=== PATIENT | female | born 1950 | race Caucasian/White ===

== ENCOUNTER 2020-05-22 11:38 | Outpatient (CLI) | payer MEDICARE, SELFPAY ==
--- NOTE | ~2020-05-22 | MM_ITS ---
EXAMINATION: MM screening allison BI w tanja HISTORY: Screening TECHNIQUE: Craniocaudal and mediolateral oblique 3-D tomosynthesis images were obtained and synthetic 2-D images were generated. CAD analysis was submitted and interpreted. COMPARISON: Comparison to multiple prior studies sequentially, with oldest reviewed study dated 03/12. BREAST PARENCHYMAL COMPOSITION: There are scattered areas of fibroglandular density. FINDINGS: There is no evidence of suspicious mass, calcification, or architectural distortion to sugg est malignancy in either breast. There has been no suspicious interval change. IMPRESSION: 1. No mammographic evidence of malignancy. 2. Recommend routine screening mammography in one year. BI-RADS Category 1: Negative Reviewed, dictated and finalized at location A.
== END 2020-05-22 11:39 | disposition home or self-care (01) ==
PROVIDERS: PCP Family Medicine; Visit Provider Family Medicine
DX: Z12.31 Encounter for screening mammogram for malignant neoplasm of breast (principal)
CPT/HCPCS: 77063; 77067

== ENCOUNTER → 2020-08-14 09:04 | Outpatient (CLI) | payer MEDICARE, SELFPAY ==
--- NOTE | ~2020-08-14 | XR_ITS ---
XR shoulder LT min 2V 08/14/2020 09:56 INDICATION: Left shoulder pain PROCEDURE: 4 views left shoulder COMPARISON: 08/14/2020 FINDINGS: Fracture, dislocation or subluxation is not identified. There is anatomic alignment. The s oft tissues appear within normal limits. No foreign bodies are identified. IMPRESSION: 1: NO ACUTE BONE OR JOINT ABNORMALITY IDENTIFIED. 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
--- NOTE | ~2020-08-14 | XR_ITS ---
XR humerus LT 08/14/2020 09:56 INDICATION: Left arm pain PROCEDURE: 2 views left humerus COMPARISON: No prior studies for comparison. FINDINGS: Fracture, dislocation or subluxation is not identified. The soft tissues appear within norm al limits. No foreign bodies are identified. IMPRESSION: 1: NO ACUTE BONE OR JOINT ABNORMALITY IDENTIFIED. 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
--- NOTE | ~2020-08-14 | XR_ITS ---
XR cervical spine 4-5V 08/14/2020 09:56 Indication: Left arm pain Procedure: 5 views cervical spine Comparison: No prior studies for comparison. Findings: There is disc narrowing and endplate degenerative change at C5-6 and C6-7. No prevertebral soft tissue swelling. There is mild multilevel uncinate hypertrophy. Lung apices are normal. Odontoid process within normal limits. Impression: 1: Mild cervical spondylosis. Reviewed, dictated and finalized at location B. 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
== END ==
PROVIDERS: PCP Physician Assistant; Visit Provider Physician Assistant
DX: M79.602 Pain in left arm (principal); M47.892 Other spondylosis, cervical region
CPT/HCPCS: 72050; 73030; 73060

== ENCOUNTER 2021-05-26 10:28 | Outpatient (CLI) | payer MEDICARE, SELFPAY ==
--- NOTE | ~2021-05-26 | MM_ITS ---
EXAMINATION: MM screening allison BI w atnja HISTORY: Screening TECHNIQUE: Craniocaudal and mediolateral oblique 3-D tomosynthesis images were obtained and synthetic 2-D images were generated. CAD analysis was submitted and interpreted. COMPARISON: Comparison to multiple prior studies sequentially, with oldest reviewed study dated 03/12. BREAST PARENCHYMAL COMPOSITION: There are scattered areas of fibroglandular density. FINDINGS: There is no evidence of suspicious mass, calcification, or architectural distortion to sugg est malignancy in either breast. There has been no suspicious interval change. IMPRESSION: 1. No mammographic evidence of malignancy. 2. Recommend routine screening mammography in one year. BI-RADS Category 1: Negative Reviewed, dictated and finalized at location A.
== END 2021-05-26 10:29 | disposition home or self-care (01) ==
LOC: ANHIMG 10:30
PROVIDERS: PCP Physician Assistant; Visit Provider Obstetrics & Gynecology
DX: Z12.31 Encounter for screening mammogram for malignant neoplasm of breast (principal)
CPT/HCPCS: 77063; 77067

== ENCOUNTER 2022-09-25 09:42 | Outpatient (CLI) | payer MEDICARE, SELFPAY ==
--- NOTE | ~2022-09-25 | DEXA_ITS ---
Bone Density Report Name: HAIDER MARTINEZ Age: 72 Sex: Female Ethnicity: White Date of : 1950 Indication: postmenopausal; screening for osteoporosis; hysterectomy; secondary osteoporosis; Referring Provider: MOUNA HER Study: Bone densitometry was performed. Exam Date: September 25, 2022 Accession number: [id number] Bone Density: Region BMD T-score Z-score Classification AP Spine(L1-L4) 0.948 -0.9 1.2 Normal Femoral Neck (Left) 0.739 -1.0 0.8 Normal Total Hip (Left) 0.814 -1.0 0.5 Normal Femoral Neck (Right) 0.739 -1.0 0.8 Normal Total Hip (Right) 0.856 -0.7 0.8 Normal Total Hip Mean 0.835 -0.9 0.7 Normal World Health Organization criteria for BMD impression classify patients as: Normal (T-score at or above -1.0), Osteopenia (T-score between -1.0 and -2.5), or Osteoporosis (T-score at or below -2.5). 10-year Fracture Risk: FRAX not reported because: All T-scores for Spine Total, Hip Total, Femoral Neck at or above -1.0 Clinical Information Provided by Patient: Has secondary osteoporosis Has used the following medications: HRT (i.e. estrogen/hormone therapy), Vitamin D Has the following medical conditions: Hysterectomy Patient maximum height was 64.5 Menopause Age: 34 Onset of menses at age 15 Number of children 3 Impression: The patient has normal bone mass. Discussion: BONE DENSITY IS ABOVE THE MINIMUM DESIRABLE LEVEL AT ALL SKELETAL SITES TESTED. This patient?s bone mineral density is above the minimum desirable level (T-score -1.0 or better) at all sites measured. The patient should follow a healthful lifestyle (good nutrition with adequate calcium and vitamin D, and appropriate weight-bearing exercise). Follow-Up: Consider repeating this study in 5 years or sooner if there is some new clinical indication. Reported by: DORIAN on 09/25/2022 10:11:00 AM. Reviewed, dictated and finalized at location Sarai MEZA
== END 2022-09-25 09:43 | disposition home or self-care (01) ==
PROVIDERS: PCP Physician Assistant; Visit Provider Obstetrics & Gynecology
DX: Z78.0 Asymptomatic menopausal state (principal)
CPT/HCPCS: 77080

== ENCOUNTER 2022-11-05 16:29 | Outpatient (CLI) | payer MEDICARE, SELFPAY ==
--- NOTE | ~2022-11-05 | MM_ITS ---
EXAMINATION: MM screening allison BI w tanja HISTORY: Screening mammogram TECHNIQUE: Craniocaudal and mediolateral oblique 3-D tomosynthesis images were obtained and synthetic 2-D images were generated. CAD analysis was submitted and interpreted. COMPARISON: 05/26/2021, 06/01/2020, 05/01/2018 bilateral screening mammogram examinations BREAST PARENCHYMAL COMPOSITION: There are scattered areas of fibroglandular density. FINDINGS: There is no evidence of suspicious mass, calcification, or architectural distortion to sugg est malignancy in either breast. There has been no suspicious interval change. IMPRESSION: 1. No mammographic evidence of malignancy. 2. Recommend routine screening mammography in one year. 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
== END 2022-11-05 16:30 | disposition home or self-care (01) ==
PROVIDERS: PCP Physician Assistant; Visit Provider Obstetrics & Gynecology
DX: Z12.31 Encounter for screening mammogram for malignant neoplasm of breast (principal)
CPT/HCPCS: 77063; 77067

== ENCOUNTER 2023-11-15 08:46 | Outpatient (CLI) | payer MEDICARE, SELFPAY ==
--- NOTE | ~2023-11-15 | MM_ITS ---
EXAMINATION: MM screening allison BI w tanja HISTORY: Screening mammogram TECHNIQUE: Craniocaudal and mediolateral oblique 3-D tomosynthesis images were obtained and synthetic 2-D images were generated. CAD analysis was submitted and interpreted. COMPARISON: November 05, 2022, May 26, 2021 bilateral screening mammogram examinations BREAST PARENCHYMAL COMPOSITION: There are scattered areas of fibroglandular density. FINDINGS: There is no evidence of suspicious mass, calcification, or architectural distortion to sugg est malignancy in either breast. There has been no suspicious interval change. IMPRESSION: 1. No mammographic evidence of malignancy. 2. Recommend routine screening mammography in one year. BI-RADS Category 1: Negative Reviewed, dictated and finalized at location A. [facility]
== END 2023-11-15 08:47 | disposition home or self-care (01) ==
LOC: ANHIMG 08:49
PROVIDERS: PCP Physician Assistant; Visit Provider Nurse Practitioner Obstetrics & Gynecology
DX: Z12.31 Encounter for screening mammogram for malignant neoplasm of breast (principal)
CPT/HCPCS: 77063; 77067

== ENCOUNTER 2024-11-17 13:58 | Outpatient (CLI) | payer MEDICARE, SELFPAY ==
--- NOTE | ~2024-11-17 | MM_ITS ---
EXAMINATION: MM screening allison BI w tanja HISTORY: Screening TECHNIQUE: Craniocaudal and mediolateral oblique 3-D tomosynthesis images were obtained and synthetic 2-D images were generated. CAD analysis was submitted and interpreted. COMPARISON: 11/15/2023 and dating back to 05/22/2020 BREAST PARENCHYMAL COMPOSITION: There are scattered areas of fibroglandular density. FINDINGS: Punctate and bulky calcifications are detected bilaterally, stable and benign in appearance . Punctate calcifications detected bilaterally, vascular in origin and benign in appearance. Otherwise stable parenchymal pattern without suspicious microcalcifications, architectural distortion , discrete masses or significant asymmetry. IMPRESSION: 1. No mammographic/tomographic evidence of malignancy. 2. Recommend routine screening mammography in one year. BI-RADS Category 2: Benign finding(s). Reviewed, dictated and finalized at location A. 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
--- OUTSIDE RECORDS SUMMARY | 2024-11-17 14:14 | XMS_ITS ---
Author Organization [facility] Address [address] [place] [address] Care Team Providers Care Hoister Name Role Phone Colten Loja Primary Care Provider Unavaila Keli Escalera Unavailable [phone] ZZ-Migration, Provider Unavailable Unavailab le [facility] Conversion Encounter Medications Medication SIG (Take, Route, Frequency, Duration) Notes Start Date End Date Status SIT (TRADITIONAL) VARIABLE PER SCHEDULE SC PER SCHEDULE *Please review for potential replacement for e-prescription and drug interaction check* Active PROAIR HFA CFC FREE 90 MCG/INH 2 PUFF(S) INHALED 4 TIMES A DAY for 30 DAY(S) *Please review for potential replacement for e-prescription and drug interaction check* Active metFORMIN HCl 500 MG 1 tab(s) orally 2 times a day Active Claritin-D 12 Hour 5-120 MG 1 tab(s) orally every 12 hours Active Tylenol 325 MG 2 tab(s) orally ever y 4 hours Active NASONEX 50 MCG/INH 2 SPRAY(S) INTRANASALLY ONCE A DAY *Please review for potential replacement for e-prescription and drug interaction check* Active Cetirizine HCl 10 MG 1 tab(s) orally once a day Active Auvi-Q 0.3 MG/0.3ML 0.3 mg intramuscularly once Active Lipitor 10 MG 1 tab(s) orally once a day (at bedtime) Active PROAIR HFA CFC FREE 90 MCG/INH 2 PUFF(S) INHALED 4 TIMES A DAY for 30 DAY(S) *Please review for potential replacement for e-prescription and drug interaction check* Active NASAL WASHES N/A DIRECTED INTRANASALLY NEEDED for 30 *Please review for potential replacement for e-prescription and drug interaction check* Active SIT (TRADITIONAL) VARIABLE PER SCHEDULE SC PER SCHEDULE for TO BE DETERMINED *Please review for potential replacement for e-prescription and drug interaction check* Active NASAL WASHES N/A DIRECTED INTRANASALLY NEEDED *Please review for potential replacement for e-prescription and drug interaction check* Active EpiPen 2-Yahir 0.3 MG/0.3ML as directed intramuscularly once for 30 day(s) Active Cetirizine HCl 10 MG 1 tab(s) orally once a day Active Encounters Encounter Location Date Provider Diagnosis RUPA Fan [address] [place], [place] [address] [address] 02/26/2024 Provider Jenny Allergic rhinitis due to pollen J30.1 and Cough R05 Assessments Encounter Date Diagnosis (ICD Code) Assessment Notes Treatment Notes Treatment Clinical Notes Section Notes 02/26/2024 Allergic rhinitis due to pollen (ICD-10 - J30.1) 02/26/2024 Cough (ICD-10 - R05) Plan Of Treatment Medication Medication Name Sig Start Date Stop Date Notes SIT (TRADITIONAL) VARIABLE PER SCHEDULE SC PER SCHEDULE *Please review for potential replacement for e-prescription and drug interaction check* PROAIR HFA CFC FREE 90 MCG/INH 2 PUFF(S) INHALED 4 TIMES A DAY for 30 DAY(S) *Please review for potential replacement for e-prescription and drug interaction check* NASAL WASHES N/A DIRECTED INTRANAS ALLY NEEDED for 30 *Please review for potential replacement for e-prescription and drug interaction check* SIT (TRADITIONAL) VARIABLE PER SCHEDULE SC PER SCHEDULE for TO BE DETERMINED *Please review for potential replacement for e-prescription and drug interaction check* EpiPen 2-Yahir 0.3 MG/0.3ML as directed intramuscularly once for 30 day(s) Cetirizine HCl 10 MG 1 tab(s) orally onc e a day Progress Notes * Mily PEREZ MDOB:[birth year] (74 yo F)Acc No.[id number]:02/26/2024 Patient: Mily HOOPER Provider: Parveen Maciel :1950 A ge:73 Y S ex:Female Date:02/26/2024 Address:[facility] [address], [place], [id number] Pcp:Colten Loja Subjective: * Chief Complaints: * 1 . Multum To Medispan Conversion Encounter. * Medical History: * Medications: T aking NASAL WASHES N/A 1 QUART OF STERILIZED TAP WATER OR DISTILLED WATER, 1 TSP NACL, 1 PINCH OF BAKING SODA DIRECTED INTRANASALLY NEEDED , Notes to Pharmacist: *Please review for potential replacement for e-prescription and drug interaction check*, Taking PROAIR HFA CFC FREE 90 MCG/INH AEROSOL 2 PUFF(S) INHALED 4 TIMES A DAY , Notes to Pharmacist: *Please review for potential replacement for e-prescription and drug interaction check*, Taking NASONEX 50 MCG/INH SPRAY 2 SPRAY(S) INTRANASALLY ONCE A DAY , Notes to Pharmacist: *Please review for potential replacement for e-prescription and drug interaction check*, Taking Cetirizine HCl 10 MG Tablet 1 tab(s) orally once a day , Taking Auvi-Q 0.3 MG/0.3ML Solution Auto-injector 0.3 mg intramuscularly once , Taking Lipitor 10 MG Tablet 1 tab(s) orally once a day (at bedtime) , Taking metFORMIN HCl 500 MG Tablet 1 tab(s) orally 2 times a day , Taking Claritin-D 12 Hour 5-120 MG Tablet Extended Release 12 Hour 1 tab(s) orally every 12 hours , Taking Tylenol 325 MG Tablet 2 tab(s) orally every 4 hours Objective: * Vitals: Assessment: * Assessment: 1. A llergic rhinitis due to pollen - J30.1 (Primary) 2 . C ough - R05 Plan: * Treatment: 2. C ough Continue PROAIR HFA AEROSOL, CFC FREE 90 MCG/INH, 2 PUFF(S), INHALED, 4 TIMES A DAY, 30 DAY(S), 240, Notes to Pharmacist: *Please review for potential replacement for e-prescription and drug interaction check*. 3. O thers Refill EpiPen 2-Yahir Solution Auto-injector, 0.3 MG/0.3ML, as directed, intramuscularly, once, 30 day(s), 1, Refills 0. * Billing Information: * Visit Code: * Procedure Codes: * Electronic signature of Wanda HallZ-Migration on 11/17/2024 at 02:14 PM GRILL ATTENDANT Sign off status: Pending * Provider: Parveen mulligan Migration Date: 0 02/26/2024 Generated for Cheri cerrato/Leanna/[place] on: 0 11/17/2024 02:14 PM GRILL ATTENDANT
--- OUTSIDE RECORDS SUMMARY | 2024-11-17 14:14 | XMS_ITS | Data Portability ---
Author Organization [facility], Main Office Address [address] [place] [address] Assessment No assessment recorded. Plan of Treatment Reminders Order Date Submit Date Provider Last Modified By Organization Details Last Modified Time Details Appointments None recorded. Lab HbA1c (hemoglobin A1c), blood 2022 023 [facility] Ailyn Silva, [address], [place], [address], 3 10:05:06 hepatic function panel, serum 2022 023 [email or web address] [facility] Ailyn Silva, [address], [place], [address], 3 09:23:56 BMP, serum or plasma 2022 023 [facility], 2022 Ailyn Silva, [address], [place], [address], 3 10:05:05 CBC w/ auto diff 2022 023 [facility], 2022 Ailyn Silva, [address], [place], [address], 3 10:05:05 lipid panel, serum 2022 023 [facility], 2022 Ailyn Silva, [address], [place], [address], 3 10:05:05 Referral None recorded. Procedures None recorded. Surgeries None recorded. Imaging None recorded. Medication Orders atorvastati n 10 mg tablet 2022 023 [facility] [address] [place], [address], 12:01:41 lisinopril 10 mg tablet 2022 023 [facility] [address] [place], [address], 12:01:44 metformin 500 mg tablet 2022 023 [facility] [address] [place], [address], 12:01:42 Patient TargetsNo targets recorded. Patient Instructions Encounter Date Encounter Id Patient Instructions Last Modified By Organization Details Last Modified Time 08/02/2023 [id number] dementia rating scale-2* [email or web address] Not available 08/02/2023 12:03:01 multi-dimensiona l health assessment questionnaire* [email or web address] Not available 08/02/2023 12:03:05 care plan* [email or web address] Not available 07/15 12:02:56 advance directiv es: care instructions Not available 08/02/2023 11:50:53 advance care planning: care instructions Not available 08/02/2023 11:50:52 [place] Advance Directives Not available 08/02/2023 11:50:53 Personalized Hea lth Plan and Screening Recommendations Advance Directives - Do you have one? Yes Advance Directives - Do we have your advance directive on file in your health record? No, please bring in a copy at your earliest convenience Primary Prevention/Interven tion (prevents or decreases the chance of common diseases from occurring) Smoking Risk: Non Smoker Alcohol Misuse Screening: Negative Weight: Appropriate Physical activity: Appropriate physical activity Nutrition: Good Fall Risk (screened today): Low Vaccines Pneumococcal: Ordered Recommended today Influenza: Your next one in the fall of this year Chronic Disease Risks Stroke: Low Risk Intermediate Risk I have no recommendations Act joan diagnosis, Continue current treatment plan Heart Attack: Low risk Intermediate Risk I have no recommendations Act joan diagnosis, Continue current treatment plan Clogging of the Arteries: Low risk Intermediate Risk I have no recommendations Act joan diagnosis, Continue current treatment plan Diabetes: High Risk Active diagnosis, Continue current treatment plan Secondary Prevention/Interven tion (detects treatable diseases before they may cause symptoms, disability, or ) Breast Cancer Screening with mammogram: Cervical/Uterine/Ov niya Cancer Screening: Your next PAP/pelvic in: Referral to rn cvicu Osteoporosis Screening: Date Screening Last Performed: Colon Cancer Screening: Colonoscopy Date Screening Last Performed: Eye Disease Screening: Ordered Dementia Risk: Low Depression Screening: Negative Active diagnosis, Continue current treatment plan Not available 08/06/2023 19:11:46 Reason for Referral None Reported. Results Created Date Observation Date Name Description Value Unit Range Abnormal Flag Note LastModifiedBy Organization Detail LastModifiedTime 09/10/20 21 09/11/2021 HEMOG LOBIN A1C hemoglobin A1C 6.1 % 4.8-5. 6 above high normal Predi abete s: 5.7 - 6.4 Diabe hardik: >6.4 Glyce herber contr ol for adult s with diabe hardik: <7.0 Not Available [facility] ([facility]) [address] [place], [address], 09/11/2021 08:23:18 09/10/20 21 09/11/2021 HEPAT IC FUNCT ION PANEL (7) protein, total 6.9 g/dL 6.0-8. 5 Not Available [facility] ([facility]) [address] [place], [address], 09/11/2021 08:23:18 09/10/20 21 09/11/2021 HEPAT IC FUNCT ION PANEL (7) albumin 4.4 g/dL 3.8-4. 8 Not Available [facility] ([facility]) [address] [place], [address], 09/11/2021 08:23:18 09/10/20 21 09/11/2021 HEPAT IC FUNCT ION PANEL (7) bilirubin, total 0.4 mg/dL 0.0-1. 2 Not Available [facility] ([facility]) [address] [facility] [place], [address], 09/11/2021 08:23:18 09/10/20 21 09/11/2021 HEPAT IC FUNCT ION PANEL (7) bilirubin, direct 0.12 mg/dL 0.00-0 .40 Not Available [facility] ([facility]) [address] [facility] [place], [address], 09/11/2021 08:23:18 09/10/20 21 09/11/2021 HEPAT IC FUNCT ION PANEL (7) alkaline phosphatase 100 IU/L 44-121 Ple ase note refer ence inter susi jackson e Not Available [facility] ([facility]) [address] [facility] [place], [address], 09/11/2021 08:23:18 09/10/20 21 09/11/2021 HEPAT IC FUNCT ION PANEL (7) AST (SGOT) 15 IU/L 0-40 Not Available [facility] ([facility]) [address] [facility] [place], [address], 09/11/2021 08:23:18 09/10/20 21 09/11/2021 HEPAT IC FUNCT ION PANEL (7) ALT (SGPT) 16 IU/L 0-32 Not Available [facility] ([facility]) [address] [facility] [place], [address], 09/11/2021 08:23:18 09/10/20 21 09/11/2021 LIPID PANEL W/ CHOL/ HDL RATIO cholesterol, total 141 mg/dL 100-19 9 Not Available [facility] ([facility]) [address] [facility] [place], [address], 09/11/2021 08:23:17 09/10/20 21 09/11/2021 LIPID PANEL W/ CHOL/ HDL RATIO triglyceride s 130 mg/dL 0-149 Not Available [facility] ([facility]) [address] [place], [address], 09/11/2021 08:23:17 09/10/20 21 09/11/2021 LIPID PANEL W/ CHOL/ HDL RATIO HDL cholesterol 41 mg/dL >39 Not Available [facility]) [address] [facility] [place], [address], 09/11/2021 08:23:17 09/10/20 21 09/11/2021 LIPID PANEL W/ CHOL/ HDL RATIO VLDL cholesterol swapna 23 mg/dL 5-40 Not Available [facility] ([facility]) [address] [facility], [place], [address], 09/11/2021 08:23:17 09/10/20 21 09/11/2021 LIPID PANEL W/ CHOL/ HDL RATIO LDL chol calc ([facility]) 77 mg/dL 0-99 Not Available [facility]) [address] [facility], [place], [address], 09/11/2021 08:23:17 09/10/20 21 09/11/2021 LIPID PANEL W/ CHOL/ HDL RATIO comment: crnp Not Available [facility] ([facility]) [address] [facility], [place], [address], 09/11/2021 08:23:17 09/10/20 21 09/11/2021 LIPID PANEL W/ CHOL/ HDL RATIO T. chol/HDL ratio 3.4 ratio 0.0-4. 4 T. Chol/ HDL Ratio Men Women 1/2 Avg.R isk 3.4 3.3 Avg.R isk 5.0 4.4 2X Avg.R isk 9.6 7.1 3X Avg.R isk 23.4 11.0 Not Available [facility] ([facility]) [address] [facility], [place], [address], 09/11/2021 08:23:17 09/10/20 21 09/11/2021 BASIC METAB OLIC PANEL (8) glucose 101 mg/dL 65-99 above high normal Not Available [facility] ([facility]) [address] [facility], [place], [address], 09/11/2021 08:23:17 09/10/20 21 09/11/2021 BASIC METAB OLIC PANEL (8) BUN 11 mg/dL 8-27 Not Available [facility] ([facility]) [address] [facility], [place], [address], 09/11/2021 08:23:17 09/10/20 21 09/11/2021 BASIC METAB OLIC PANEL (8) creatinine 0.79 mg/dL 0.57-1 .00 Not Available [facility] ([facility]) [address] [facility], [place], [address], 09/11/2021 08:23:17 09/10/20 21 09/11/2021 BASIC METAB OLIC PANEL (8) eGFR if nonafricn AM 77 mL/mi n/1.7 3 >59 Not Available [facility] ([facility]) [address] [facility], [place], [address], 09/11/2021 08:23:17 09/10/20 21 09/11/2021 BASIC METAB OLIC PANEL (8) eGFR if africn AM 88 mL/mi n/1.7 3 >59 In accor dance with recom menda tions from the NKF-A SN Task force , [facility] is in the proce ss of updat ing its eGFR calcu latio n to the 2020 CKD-E PI creat inine equat ion that estim ates kidne y funct ion witho ut a race varia ble. Not Available [facility] ([facility]) [address] [facility], [place], [address], 09/11/2021 08:23:17 09/10/20 21 09/11/2021 BASIC METAB OLIC PANEL (8) BUN/creatini ne ratio 14 12-28 Not Available [facility] ([facility]) [address] [facility], [place], [address], 09/11/2021 08:23:17 09/10/20 21 09/11/2021 BASIC METAB OLIC PANEL (8) sodium 138 mmol/ L 134-14 4 Not Available [facility] ([facility]) [address] [place], [address], 09/11/2021 08:23:17 09/10/20 21 09/11/2021 BASIC METAB OLIC PANEL (8) potassium 5.0 mmol/ L 3.5-5. 2 Not Available [facility] ([facility]) [address] [place], [address], 09/11/2021 08:23:17 09/10/20 21 09/11/2021 BASIC METAB OLIC PANEL (8) chloride 102 mmol/ L 96-106 Not Available [facility] ([facility]) [address] [place], [address], 09/11/2021 08:23:17 09/10/20 21 09/11/2021 BASIC METAB OLIC PANEL (8) carbon dioxide, total 23 mmol/ L 20-29 Not Available [facility] ([facility]) [address] [place], [address], 09/11/2021 08:23:17 09/10/20 21 09/11/2021 BASIC METAB OLIC PANEL (8) calcium 9.4 mg/dL 8.7-10 .3 Not Available [facility] ([facility]) [address] [place], [address], 09/11/2021 08:23:17 09/10/20 21 09/11/2021 URINA LYSIS , COMPL ETE specific gravity 1.018 1.005- 1.030 Not Available [facility] ([facility]) [address] [place], [address], 09/11/2021 08:23:16 09/10/20 21 09/11/2021 URINA LYSIS , COMPL ETE pH 7.5 5.0-7. 5 Not Available [facility] ([facility]) [address] [facility], [place], [address], 09/11/2021 08:23:16 09/10/20 21 09/11/2021 URINA LYSIS , COMPL ETE urine-color yellow yellow Not Available [facility] ([facility]) [address] [facility], [place], [address], 09/11/2021 08:23:16 09/10/20 21 09/11/2021 URINA LYSIS , COMPL ETE appearance clear clear Not Available [facility] ([facility]) [address] [facility], [place], [address], 09/11/2021 08:23:16 09/10/2009/11/2021 URINA LYSIS , COMPL ETE WBC esterase negati ve negati ve Not Available [facility] ([facility]) [address] [facility], [place], [address], 09/11/2021 08:23:16 09/10/20 21 09/11/2021 URINA LYSIS , COMPL ETE protein negati ve negati ve/tra ce Not Available [facility] ([facility]) [address] [facility], [place], [address], 09/11/2021 08:23:16 09/10/2009/11/2021 URINA LYSIS , COMPL ETE glucose negati ve negati ve Not Available [facility] ([facility]) [address] [facility], [place], [address], 09/11/2021 08:23:16 09/10/2009/11/2021 URINA LYSIS , COMPL ETE ketones negati ve negati ve Not Available [facility] ([facility]) [address] [facility], [place], [address], 09/11/2021 08:23:16 09/10/20 21 09/11/2021 URINA LYSIS , COMPL ETE occult blood negati ve negati ve Not Available [facility] ([facility]) [address] [facility], [place], [address], 09/11/2021 08:23:16 09/10/20 21 09/11/2021 URINA LYSIS , COMPL ETE bilirubin negati ve negati ve Not Available [facility] ([facility]) [address] [facility], [place], [address], 09/11/2021 08:23:16 09/10/20 21 09/11/2021 URINA LYSIS , COMPL ETE urobilinogen ,semi-qn 0.2 mg/dL 0.2-1. 0 Not Available [facility] ([facility]) [address] [facility], [place], [address], 09/11/2021 08:23:16 09/10/20 21 09/11/2021 URINA LYSIS , COMPL ETE nitrite, urine negati ve negati ve Not Available [facility] ([facility]) [address] [facility], [place], [address], 09/11/2021 08:23:16 09/10/20 21 09/11/2021 URINA LYSIS , COMPL ETE microscopic examination commen t Micro scopi c follo ws if indic ated. Not Available [facility] ([facility]) [address] [facility], [place], [address], 09/11/2021 08:23:16 09/10/20 21 09/11/2021 URINA LYSIS , COMPL ETE microscopic examination see below: Micro scopi c was indic ated and was perfo rmed. Not Available [facility] ([facility]) [address] [facility], [place], [address], 09/11/2021 08:23:16 09/10/20 21 09/11/2021 URINA LYSIS , COMPL ETE WBC 0-5 /hpf 0 - 5 Not Available [facility] ([facility]) [address] [facility], [place], [address], 09/11/2021 08:23:16 09/10/20 21 09/11/2021 URINA LYSIS , COMPL ETE RBC 0-2 /hpf 0 - 2 Not Available [facility] ([facility]) [address] [facility], [place], [address], 09/11/2021 08:23:16 09/10/20 21 09/11/2021 URINA LYSIS , COMPL ETE epithelial cells (non renal) none seen /hpf 0 - 10 Not Available [facility] ([facility]) [address] [facility], [place], [address], 09/11/2021 08:23:16 09/10/20 21 09/11/2021 URINA LYSIS , COMPL ETE epithelial cells (renal) crnp Not Available [facility] ([facility]) [address] [facility], [place], [address], 09/11/2021 08:23:16 09/10/20 21 09/11/2021 URINA LYSIS , COMPL ETE casts none seen /lpf none seen Not Available [facility] ([facility]) [address] [facility], [place], [address], 09/11/2021 08:23:16 09/10/20 21 09/11/2021 URINA LYSIS , COMPL ETE cast type crnp Not Available [facility] ([facility]) [address] [facility], [place], [address], 09/11/2021 08:23:16 09/10/20 21 09/11/2021 URINA LYSIS , COMPL ETE crystals crnp Not Available [facility] ([facility]) [address] [facility], [place], [address], 09/11/2021 08:23:16 09/10/20 21 09/11/2021 URINA LYSIS , COMPL ETE crystal type crnp Not Available [facility] ([facility]) [address] [facility], [place], [address], 09/11/2021 08:23:16 09/10/20 21 09/11/2021 URINA LYSIS , COMPL ETE mucus threads crnp Not Available [facility] ([facility]) [address] [facility], [place], [address], 09/11/2021 08:23:16 09/10/20 21 09/11/2021 URINA LYSIS , COMPL ETE bacteria none seen none seen/f ew Not Available [facility] ([facility]) [address] [facility], [place], [address], 09/11/2021 08:23:16 09/10/20 21 09/11/2021 URINA LYSIS , COMPL ETE yeast crnp Not Available [facility] ([facility]) [address] [facility], [place], [address], 09/11/2021 08:23:16 09/10/20 21 09/11/2021 URINA LYSIS , COMPL ETE trichomonas crnp Not Available [facility] ([facility]) [address] [facility], [place], [address], 09/11/2021 08:23:16 09/10/20 21 09/11/2021 URINA LYSIS , COMPL ETE comment crnp Not Available [facility] ([facility]) [address] [facility], [place], [address], 09/11/2021 08:23:16 09/10/20 21 09/11/2021 CBC WITH DIFFE RENTI AL/PL ATELE T WBC 3.7 x10e3 /uL 3.4-10 .8 Not Available [facility] ([facility]) [address] [facility], [place], [address], 09/11/2021 08:23:15 09/10/20 21 09/11/2021 CBC WITH DIFFE RENTI AL/PL ATELE T RBC 4.54 x10e6 /uL 3.77-5 .28 Not Available [facility] ([facility]) [address] [facility], [place], [address], 09/11/2021 08:23:15 09/10/20 21 09/11/2021 CBC WITH DIFFE RENTI AL/PL ATELE T hemoglobin 13.6 g/dL 11.1-1 5.9 Not Available [facility] ([facility]) [address] [facility], [place], [address], 09/11/2021 08:23:15 09/10/20 21 09/11/2021 CBC WITH DIFFE RENTI AL/PL ATELE T hematocrit 41.1 % 34.0-4 6.6 Not Available [facility] ([facility]) [address] [facility], [place], [address], 09/11/2021 08:23:15 09/10/20 21 09/11/2021 CBC WITH DIFFE RENTI AL/PL ATELE T MCV 91 fL 79-97 Not Available [facility] ([facility]) [address] [facility], [place], [address], 09/11/2021 08:23:15 09/10/20 21 09/11/2021 CBC WITH DIFFE RENTI AL/PL ATELE T MCH 30.0 pg 26.6-3 3.0 Not Available [facility] ([facility]) [address] [facility], [place], [address], 09/11/2021 08:23:15 09/10/20 21 09/11/2021 CBC WITH DIFFE RENTI AL/PL ATELE T MCHC 33.1 g/dL 31.5-3 5.7 Not Available [facility] ([facility]) [address] [place], [address], 09/11/2021 08:23:15 09/10/20 21 09/11/2021 CBC WITH DIFFE RENTI AL/PL ATELE T RDW 12.7 % 11.7-1 5.4 Not Available [facility] ([facility]) [address] [facility], [place], [address], 09/11/2021 08:23:15 09/10/20 21 09/11/2021 CBC WITH DIFFE RENTI AL/PL ATELE T platelets 235 x10e3 /uL 150-45 0 Not Available [facility] ([facility]) [address] [facility], [place], [address], 09/11/2021 08:23:15 09/10/20 21 09/11/2021 CBC WITH DIFFE RENTI AL/PL ATELE T neutrophils 40 % not estab. Not Available [facility] ([facility]) [address] [facility], [place], [address], 09/11/2021 08:23:15 09/10/20 21 09/11/2021 CBC WITH DIFFE RENTI AL/PL ATELE T lymphs 42 % not estab. Not Available [facility] ([facility]) [address] [facility], [place], [address], 09/11/2021 08:23:15 09/10/20 21 09/11/2021 CBC WITH DIFFE RENTI AL/PL ATELE T monocytes 13 % not estab. Not Available [facility] ([facility]) [address] [facility], [place], [address], 09/11/2021 08:23:15 09/10/20 21 09/11/2021 CBC WITH DIFFE RENTI AL/PL ATELE T eos 4 % not estab. Not Available [facility] ([facility]) [address] [facility], [place], [address], 09/11/2021 08:23:15 09/10/20 21 09/11/2021 CBC WITH DIFFE RENTI AL/PL ATELE T basos 1 % not estab. Not Available [facility] ([facility]) [address] [facility], [place], [address], 09/11/2021 08:23:15 09/10/20 21 09/11/2021 CBC WITH DIFFE RENTI AL/PL ATELE T immature cells crnp Not Available [facility] ([facility]) [address] [facility], [place], [address], 09/11/2021 08:23:15 09/10/20 21 09/11/2021 CBC WITH DIFFE RENTI AL/PL ATELE T neutrophils (absolute) 1.5 x10e3 /uL 1.4-7. 0 Not Available [facility] ([facility]) [address] [place], [address], 09/11/2021 08:23:15 09/10/20 21 09/11/2021 CBC WITH DIFFE RENTI AL/PL ATELE T lymphs (absolute) 1.5 x10e3 /uL 0.7-3. 1 Not Available [facility] ([facility]) [address] [place], [address], 09/11/2021 08:23:15 09/10/20 21 09/11/2021 CBC WITH DIFFE RENTI AL/PL ATELE T monocytes(ab solute) 0.5 x10e3 /uL 0.1-0. 9 Not Available [facility] ([facility]) [address] [place], [address], 09/11/2021 08:23:15 09/10/20 21 09/11/2021 CBC WITH DIFFE RENTI AL/PL ATELE T eos (absolute) 0.1 x10e3 /uL 0.0-0. 4 Not Available [facility] ([facility]) [address] [place], [address], 09/11/2021 08:23:15 09/10/20 21 09/11/2021 CBC WITH DIFFE RENTI AL/PL ATELE T baso (absolute) 0.1 x10e3 /uL 0.0-0. 2 Not Available [facility] ([facility]) [address] [facility], [place], [address], 09/11/2021 08:23:15 09/10/20 21 09/11/2021 CBC WITH DIFFE RENTI AL/PL ATELE T immature granulocytes 0 % not estab. Not Available [facility] ([facility]) [address] [facility], [place], [address], 09/11/2021 08:23:15 09/10/20 21 09/11/2021 CBC WITH DIFFE RENTI AL/PL ATELE T immature grans (abs) 0.0 x10e3 /uL 0.0-0. 1 Not Available [facility] ([facility]) [address] [facility], [place], [address], 09/11/2021 08:23:15 09/10/20 21 09/11/2021 CBC WITH DIFFE RENTI AL/PL ATELE T NRBC crnp Not Available [facility] ([facility]) [address] [facility], [place], [address], 09/11/2021 08:23:15 09/10/20 21 09/11/2021 CBC WITH DIFFE RENTI AL/PL ATELE T hematology comments: crnp Not Available [facility] ([facility]) [address] [place], [address], 09/11/2021 08:23:15 09/10/2009/11/2021 TSH+F REE T4 TSH 1.960 uIU/m L 0.450- 4.500 Not Available [facility] ([facility]) [address] [place], [address], 09/11/2021 08:23:15 09/10/20 21 09/11/2021 TSH+F REE T4 T4,free(dire ct) 1.32 NG/dL 0.82-1 .77 Not Available [facility] ([facility]) [address] [place], [address], 09/11/2021 08:23:15 08/20/20 21 08/19/2021 jarvis can cardi olite stres s test (PROC ) No observ ation record ed. [id number] [facility] [address], [place], [address], 11/11/2022 22:21:55 01/30/20 23 11/05/2022 MAMMO , scree aileen, digit al, bilat eral No observ ation record ed. Not Available 2022 15:55:43 Result Notes None recorded. Problems Name Problem SNOMED Code Status Onset Date Resolution Date Notes Provider Name and Address Organization Details Recorded Time Atypical chest pain 803980147 Active 2021 Not Available [facility] 3 22:21:36 Benign essential hypertension 7501599 Active 2021 Not Available [facility] 3 22:21:36 Gastroesophag eal reflux disease 790497455 Active 2021 Not Available [facility] 3 22:21:36 Gastroesophag eal reflux disease without esophagitis 522509815 Active 2021 Not Available [facility] 3 22:21:36 Cough 10074870 Active 2021 Not Available [facility] 3 22:21:36 Hyperlipidemi a 20753753 Active 2021 Not Available [facility] 3 22:21:36 Impaired glucose tolerance 8673334 Active 2021 Not Available [facility] 3 22:21:36 Problem Notes None recorded. Procedures Surgical History Date Name Laterality Status Provider Name and Address Organization Details Recorded Time 08/02/20 23 Medicare Wellness CPT Code, subsequent completed ARTEMIO Farr [facility] 08/02/2023 11:20:32 11/05/19 23 Date of Last Mammogram completed ARTEMIO Farr [facility] 07/30/2023 10:42:41 09/13/19 22 Most Recent Bone Density completed ARTEMIO Farr [place] - [facility] 08/02/2023 11:26:53 09/13/19 18 Date of Last Colonoscopy completed Not Available [facility] 11/11/2022 22:21:25 09/13/19 18 Colonoscopy completed Not Available [facility] 11/12/19 22:21:25 [facility] 22:21:25 Imaging Results Imaging Date Name Status LastModified by Organiz ation Details LastModified Time 08/19/2021 lexiscan cardiolite stress test (PROC) completed [id number] [facility] [address], [place], [address], 11/11/2022 22:21:55 11/05/2022 MAMMO, screening, digital, bilateral completed Information not available 02/08/2023 15:55:43 Procedure Notes None recorded. Medical Equipment None Reported. Allergies No known drug allergies Medications Name Sig Start Date Stop Date Status Note LastModified by Organization Details LastModified Time metformin 500 mg tablet TAKE ONE TABELT BY MOUTH DAILY WITH BREAKFAST AND 2 TABLETS WITH SUPPER. active Not Available Not Available No t Available atorvastati n 10 mg tablet TAKE 1 TABLET BY MOUTH ONCE DAILY active Not Available Not Available No t Available benzonatate 200 mg capsule Take 1 capsule 3 times a day by oral route. active Not Available Not Available No t Available penicillin V potassium 500 mg tablet active Not Available Not Available Not Available lisinopril 10 mg tablet TAKE 1 TABLET BY MOUTH ONCE DAILY active Not Available Not Available No t Available clobetasol 0.05 % topical ointment APPLY A THIN LAYER TO THE AFFECTED AREA(S) TWICE WEEKLY. active Not Available Not Available No t Available metformin ER 500 mg tablet,exte nded release 24 hr TAKE 3 TABLETS BY MOUTH ONCE DAILY active Not Available Not Available No t Available omeprazole 20 mg tablet,xiao yed release Take 1 tablet every day by oral route. 2019 active Not Available Not Available Not Avai lable Fluzone High-Dose Quad (PF) 240 mcg/0.7 mL IM syringe 08/06 completed Not Available Not Available Not Available Vitals Date Recorded Body mass index (BMI) Body height Oxygen saturation Oxygen saturation in Arterial blood by Pulse oximetry Heart rate Body temperature Body weight Systolic blood pressure Diastolic blood pressure Provider Name and Address Organization Details Last Updated DateTime 1 26.9 kg/m2 162.56 cm 98 % 98 % 100 /min 96.6 [degF] 09393.2 8 g 110 mm[Hg] 70 mm[Hg] Not Available [facility] 3 22:21:32 Date Recorded Body mass index (BMI) Body height Oxygen saturation Oxygen saturation in Arterial blood by Pulse oximetry Heart rate Respiratory rate Body temperature Body weight Systolic blood pressure Diastolic blood pressure Provider Name and Address Organization Details Last Updated DateTime 2 26.8 kg/m2 162.56 cm 96 % 96 % 83 /min 16 /min 97.5 [degF] 22789.8 5 g 138 mm[Hg] 88 mm[Hg] Not Available [facility] 3 22:21:32 Date Recorded Body height Oxygen saturation Oxygen saturation in Arterial blood by Pulse oximetry Heart rate Body temperature Systolic blood pressure Diastolic blood pressure Provider Name and Address Organization Details Last Updated DateTime 2 162.56 cm 96 % 96 % 84 /min 97.8 [degF] 132 mm[Hg] 84 mm[Hg] Not Available [facility] 3 22:21:32 Date Recorded Body height Body temperature Body mass index (BMI) Body weight Respiratory rate Heart rate Oxygen saturation Oxygen saturation in Arterial blood by Pulse oximetry Systolic blood pressure Diastolic blood pressure Provider Name and Address Organization Details Last Updated DateTime 3 162.56 cm 97.5 [degF] 26.6 kg/m2 38441.8 2 g 16 /min 89 /min 98 % 98 % 138 mm[Hg] 80 mm[Hg] ARTEMIO Farr [facility] 3 11:32:02 Date Recorded Systolic blood pressure Diastolic blood pressure Systolic blood pressure Diastolic blood pressure Provider Name and Address Organization Details Last Updated DateTime 01/29/2023 122 mm[Hg] 80 mm[Hg] 120 mm[Hg] 80 mm[Hg] ROBYN Curry [address] [place] [address], [place] [address], [place], [address] , [facility] 3 11:47:14 Date Recorded Body height Body temperature Body mass index (BMI) Body weight Respiratory rate Oxygen saturation Oxygen saturation in Arterial blood by Pulse oximetry Heart rate Systolic blood pressure Diastolic blood pressure Provider Name and Address Organization Details Last Updated DateTime 3 162.56 cm 97.6 [degF] 26.6 kg/m2 71309.8 2 g 16 /min 98 % 98 % 83 /min 138 mm[Hg] 82 mm[Hg] ARTEMIO Farr [facility] 3 11:24:43 Date Recorded Systolic blood pressure Diastolic blood pressure Provider Name and Address Organization Details Last Updated DateTime 08/02/2023 120 mm[Hg] 80 mm[Hg] ROBYN Curry [address] [facility], [facility] [address], [place], [address], [facility] 08/02/2023 11:51:28 Social History Question Answer Notes LastModified by Organizat ion Details LastModified Time Tobacco Smoking Status Never Smoker Not Available [facility] 11/11/2022 22:21:22 Do You Have An Advance Directive? Yes MIGRATION.[id number] Information not available 11/11/2022 What Is Your Level Of Alcohol Consumption? None MIGRATION.383184 4914 Information not available 11/11/2022 Do You Wear A Helmet When Biking? No MIGRATION.481939 1821 Information not available 11/11/2022 Are You Blind Or Do You Have Difficulty Seeing? No MIGRATION.197027 0790 Information not available 11/11/2022 What Is Your Level Of Caffeine Consumption? Occasional MIGRATION.920478 0550 Information not available 11/11/2022 In The 14 Days Before Symptom Onset, Have You Had Close Contact With A Laboratory-confir med COVID-19 While That Case Was Ill? No MIGRATION.266584 9784 Information not available 11/11/2022 In The 14 Days Before Symptom Onset, Have You Had Close Contact With A Person Who Is Under Investigation For COVID-19 While That Person Was Ill? No MIGRATION.085504 5516 Information not available 11/11/2022 Are You Deaf Or Do You Have Serious Difficulty Hearing? No MIGRATION.648512 7707 Information not available 11/11/2022 What Type Of Diet Are You Following? REGULAR MIGRATION.265494 1670 Information not available 11/11/2022 Have There Been Any Changes To Your Family Or Social Situation? No MIGRATION.043996 8008 Information not available 11/11/2022 Are There Any Guns Present In Your Home? Yes MIGRATION.883823 0129 Information not available 11/11/2022 Do You Use Insect Repellent Routinely? Yes MIGRATION.697285 3758 Information not available 11/11/2022 Do You Have A Medical Power Of Devops Developer? Yes Son, Florentin stevens Information not available 08/02/2023 What Is Your Relationship Status? MIGRATION.052329 6056 Information not available 11/11/2022 Do You Use Your Seat Belt Or Car Seat Routinely? Yes MIGRATION.021159 8110 Information not available 11/11/2022 Do You Have Smoke And Carbon Monoxide Detectors In Your Home? Yes MIGRATION.444261 4678 Information not available 11/11/2022 Are You Passively Exposed To Smoke? No MIGRATION.882700 9324 Information not available 11/11/2022 Are There Any Smokers In Your House? No MIGRATION.341942 9545 Information not available 11/11/2022 Do You Feel Stressed (tense, Restless, Nervous, Or Anxious, Or Unable To Sleep At Night)? [id number] MIGRATION.825034 4810 Information not available 11/11/2022 Do You Use Any Illicit Or Recreational Drugs? No MIGRATION.339198 0146 Information not available 11/11/2022 Do You Use Sunscreen Routinely? Yes MIGRATION.523227 9751 Information not available 11/11/2022 Has Tobacco Cessation Counseling Been Provided? No MIGRATION.883054 9419 Information not available 11/11/2022 Have You Recently Traveled Abroad? No MIGRATION.910158 9924 Information not available 11/11/2022 Do You Have Any Dietary Restrictions? No MIGRATION.591266 1176 Information not available 11/11/2022 Do You Or Have You Ever Used Any Other Forms Of Tobacco Or Nicotine? No MIGRATION.223535 9739 Information not available 11/11/2022 Sex: Unknown Functional Status Question Answer Note LastModified by Organizat ion Details LastModified Time Do you have difficulty walking or climbing stairs? No MIGRATION.1405478 026 Information not available 11/11/2022 Do you have transportation difficulties? No MIGRATION.9253592 026 Information not available 11/11/2022 Are you able to walk? YESWOREST MIGRATION.9372328 026 Information not available 11/11/2022 Do you have difficulty doing errands alone? No MIGRATION.1006654 026 Information not available 11/11/2022 Are you able to care for yourself? Yes MIGRATION.1189353 026 Information not available 11/11/2022 Do you have difficulty dressing or bathing? No MIGRATION.7822268 026 Information not available 11/11/2022 What is your exercise level? Moderate MIGRATION.2541452 026 Information not available 11/11/2022 Mental Status Question Answer Note LastModified by Organizat ion Details LastModified Time Do you have difficulty concentrating, remembering or making decisions? No MIGRATION.[id number] 6 Information not available 11/11/2022 Family History Relationship Description Onset Age of this Age Resolved Age Notes LastModified by Organization Details LastModified Time Mother Malignant tumor of spinal cord MIGRATION.[id number] Not available 11/11/2022 22:21:26 Father Heart disease MIGRATION.[id number] Not available 11/11/2022 22:21:26 Medical History Condition Response EYE PROBLEMS Y DIABETES, TYPE Y ANXIETY DISORDER Y HEARTBURN / REFLUX Y HYPERTENSION Y HIGH CHOLESTEROL / HYPERLIPIDEMIA Y Gynecological History Statement/Question Response Menses Monthly N Date of Last Mammogram 11/05/2022 Current Control Method Hysterectom y Date of Last Colonoscopy 09/13/2017 Date of Last Mammogram 11/05/2022 Most Recent Bone Density 09/13/2021 Sexually Active? Y Obstetrics History GPAL:G 3 P 0 0 0 3 Type Value Living 3 Total 3 Immunizations Vaccine Type Date Status Note Provider Nam e and Address Organization Details Recorded Time COVID-19, mRNA, LNP-S, PF, 30 mcg/0.3 mL dose 1 completed Not Available [facility] 11/11/2022 22:21:53 Influenza, split virus, quadrivalent, preservative 0 completed Not Available [facility] 11/11/2022 22:21:53 SARS-COV-2 (COVID-19) vaccine, UNSPECIFIED 3 completed ARTEMIO Farr null, [place] [employer] [facility] 06/28/2023 09:35:16 influenza, unspecified formulation 3 completed ARTEMIO Farr[place] [employer] [facility] 06/28/2023 09:35:31 Respiratory syncytial virus (RSV) MAB, unspecified 3 completed ARTEMIO Farr[place] [employer] [facility] 06/28/2023 09:35:48 Past Encounters Encounter ID Performer Location Encounter Start Date Encounter Closed Date Diagnosis/Indication Diagnosis SNOMED-CT Code Diagnosis ICD10 Code Diagnosis Note [id number] [facility] [place] [facility] [place] [address] [place] [address] 08/06/2021 00:00:00 08/08/2021 20:43:17 [id number] [facility] Internal [facility] [place] [address] [place] [address] 02/04/2022 00:00:00 02/09/2022 14:08:45 [id number] [facility] [place] [facility] [place] [address] [place] [address] 07/31/2022 00:00:00 08/11/2022 23:38:47 [id number] ROBYN Curry [facility] Internal Med [place] [address] [facility] [place] [address] 01/29/2023 11:25:34 01/29/2023 11:52:47 Benign essential hypertension 5492217 I10 well controlled on lisinopril 10mg daily Gastroesop hageal reflux disease 659889280 K21.9 stable on omeprazole 20mg daily. Hyperlipidemia 40721172 E78.5 improved, stable on atorvastat in 10mg daily Impaired g lucose tolerance 0341765 R73.03 6.1% stable on metformin 500mg Long-term drug therapy 940109390 Z79.899 next labs due in [id number] ROBYN Curry [facility] Internal Med [place] [address] [place] [address] 08/02/2023 11:19:19 08/02/2023 12:06:07 Adult health examination 483813765 Z00.00 Mawe completed and routine f/u completed Screening for disorder 031200907 Z13.9 Benign ess ential hypertension 4074232 I10 well controlled on lisinopril 10mg daily Gastroesop hageal reflux disease 097893135 K21.9 stable on omeprazole 20mg daily. Hyperlipidemia 89617581 E78.5 improved, stable on atorvastat in 10mg daily Impaired g lucose tolerance 6191738 R73.03 6.1% stable on metformin 500mg Long-term drug therapy 638622585 Z79.899 refill given on meds. Health Concerns Section Related Observation LastModified by Organization Detai ls LastModified Time None Recorded Concern Status LastModified by Organization Details LastModified Time None Recorded Advance Directives Directive Y: Payers Encounter Date Sequence Insurance Name Policy Number Policy [place] Covered Member ID [place] Member ID Guarantor Name 01/29/2023 2 [place] Mily Perez [id number] Mily Perez 01/29/2023 2 [employer] (PPO) [id number] Mily M Ana [id number] Mily M Ana 08/02/2023 1 [employer] (MEDICARE REPLACEMENT PPO) [id number] Mily M Ana [id number] Mily Km Ana Notes Date Note Type Note Provider Name and Address Organization Details Recorded Time 08/06/20 21 text/htm l HyperlipidemiaReported bypatient.Control:usually well controlled; improving; at goal Compliance:compliant; compliant with diet; exercises Complications:no coronary artery disease; no peripheral artery disease; no cardiovascular diseaseHypertensionReported bypatient.Onset/Timing:better Self Care:not under emotional stress Associated Symptoms:no shortness of breath; no fatigue; no palpitations; no decline in exercise capacity; no snoringReflux/GERDReported bypatient.Symptomsasymptomatic; no difficulty swallowing; no pain swallowing; no postprandial pain Severity:improving Context:non-smoker; no drug/alcohol abuse; no drug alcohol withdrawal; not related to food/drink Associated Symptoms:no frequent coughing; no feeling of fullness/mass in throat; no hoarseness; no food getting stuck; no belching/burping; no nausea; no vomiting; not vomiting blood; no regurgitation; no shortness of breath; no chest pain; no heartburn; no difficulty swallowing; no pain when swallowing; no bad taste; no decreased appetite; no weight loss; no black/tarry stools; no fatigue; no throat pain; no dental erosion; no bloating; no early satiety; no halitosis Not Available [employer] [facility] 08/08/2021 20:43:17 02/05/20 22 text/htm l HyperlipidemiaReported bypatient.Duration:chronic Control:usually well controlled Current Therapy:currently taking: (atorvastatin) Compliance:compliant; exercises;noncompliant with diet Complications:no coronary artery disease; no peripheral artery disease; no cardiovascular disease Risk Factors:hypertensionHypertensio nReported bypatient.Duration:has noted for years Onset/Timing:better Alleviating Factors:medication Self Care:not under emotional stress Associated Symptoms:no shortness of breath; no fatigue; no palpitations; no decline in exercise capacity; no snoringReflux/GERDReported bypatient.Symptomsasymptomatic; no difficulty swallowing; no pain swallowing; no postprandial pain Severity:same Duration:present 5 or more years Onset/Timing:gone now Context:non-smoker; no drug/alcohol abuse; no drug alcohol withdrawal; not related to food/drink Alleviating Factors:medication Aggravating Factors:worsened by food Associated Symptoms:no frequent coughing; no hoarseness; no food getting stuck; no belching/burping; no vomiting; not vomiting blood; no regurgitation; no shortness of breath; no chest pain; no heartburn; no difficulty swallowing; no pain when swallowing; no bad taste; no decreased appetite; no weight loss; no black/tarry stools; no fatigue; no throat pain; no dental erosion; no bloating; no early satiety; no halitosis Not Available [employer] [facility] 02/09/2022 14:08:45 07/31/20 22 text/htm l HyperlipidemiaReported bypatient.Duration:chronic Control:usually well controlled Current Therapy:currently taking: (atorvastatin) Compliance:compliant; exercises;noncompliant with diet Complications:no coronary artery disease; no peripheral artery disease; no cardiovascular disease Risk Factors:hypertensionHypertensio nReported bypatient.Duration:has noted for years Onset/Timing:better Alleviating Factors:medication Self Care:not under emotional stress Associated Symptoms:no shortness of breath; no fatigue; no palpitations; no decline in exercise capacity; no snoringReflux/GERDReported bypatient.Symptomsasymptomatic; no difficulty swallowing; no pain swallowing; no postprandial pain Severity:same Duration:present 5 or more years Onset/Timing:gone now Context:non-smoker; no drug/alcohol abuse; no drug alcohol withdrawal; not related to food/drink Alleviating Factors:medication Aggravating Factors:worsened by food Associated Symptoms:no frequent coughing; no hoarseness; no food getting stuck; no belching/burping; no vomiting; not vomiting blood; no regurgitation; no shortness of breath; no chest pain; no heartburn; no difficulty swallowing; no pain when swallowing; no bad taste; no decreased appetite; no weight loss; no black/tarry stools; no fatigue; no throat pain; no dental erosion; no bloating; no early satiety; no halitosis Not Available [facility] 08/11/2022 23:38:47 01/30/20 23 text/htm l HyperlipidemiaReported bypatient.Duration:chronic Control:usually well controlled Compliance:compliant; compliant with diet;does not exercise Complications:no coronary artery disease; no peripheral artery disease; no cardiovascular disease Risk Factors:hypertensionHypertensio nReported bypatient.Duration:has noted for years Onset/Timing:better Alleviating Factors:medication Associated Symptoms:no shortness of breath; no fatigue; no palpitations; no decline in exercise capacity; no snoringReflux/GERDReported bypatient.Severity:same Duration:present 5 or more years Onset/Timing:gone now Context:non-smoker; no drug/alcohol abuse; no drug alcohol withdrawal; not related to food/drink Alleviating Factors:medication Associated Symptoms:no frequent coughing; no feeling of fullness/mass in throat; no hoarseness; no food getting stuck; no belching/burping; no vomiting; not vomiting blood; no regurgitation; no shortness of breath; no chest pain; no heartburn; no difficulty swallowing; no pain when swallowing; no bad taste; no decreased appetite; no weight loss; no black/tarry stools; no fatigue; no throat pain IGT hx. on metformin therapy and doing well. ROBYN Curry [address], [facility] [address], [place], [address], [facility] 02/08/2023 16:00:27 08/02/20 23 text/htm l HyperlipidemiaReported bypatient.Duration:chronic Control:usually well controlled Compliance:compliant; compliant with diet; exercises Complications:no coronary artery disease; no peripheral artery disease; no cardiovascular disease Risk Factors:hypertensionHypertensio nReported bypatient.Duration:has noted for months Onset/Timing:better Alleviating Factors:medication Associated Symptoms:no shortness of breath; no fatigue; no palpitations; no decline in exercise capacity; no snoringNotes:stable on medicationReflux/GERDReported bypatient.Notes:stable on medication. IGT hx on metformin therapy. stable. ROBYN Curry [address], [facility] [address], [place], [address], [facility] 08/06/2023 19:12:13 OBGyn Episode No OBEpisode recorded.
--- OUTSIDE RECORDS SUMMARY | 2024-11-17 14:14 | XMS_ITS | Data Portability ---
Author Organization [facility] [place] Address [address] [place] [address] Assessment Encounter Date Assessment Date Assessment LastModified by Organization Details LastModified Time 05/02/2021 05/02/2021 Discussed lichen sclerosus will schedule biopsy to confirm clobetasol to start now med check 4-6 weeks [email or web address] Not available 05/02/2021 16:18:56 05/20/2021 05/20/2021 vulvar bx done, will contact with results continue clobetasol, has med check scheduled 06/13. [email or web address] Not available 05/20/2021 15:23:13 06/13/2021 06/13/2021 Great sx improvement/reso lution- may try clobetasol every other day precautions given FU 1 year for WWE [email or web address] Not available 06/13/2021 11:43:32 05/26/2022 05/26/2022 healthy female exam/menopause patient declines std testing pap -- none more mammogram ordered and encouraged colonoscopy due around 2025 dexa ordered and encouraged Encouraged weight bearing exercise and 1500mg daily of Calcium with Vitamin D FU 1 year or prn [email or web address] Not available 05/26/2022 13:30:39 06/25/2023 06/25/2023 Annual gynecological exam performed. Patient will come back in a year unless there are new symptoms. Not available 06/25/2023 12:48:03 Plan of Treatment Reminders Order Date Submit Date Provider Last Modified By Organization Details Last Modified Time Details Appointments None recorded. Lab None recorded. Referral None recorded. Procedures None recorded. Surgeries None recorded. Imaging MAMMO, screening, bilateral 2022 023 8 [facility], [address], [place], [address], 3 13:12:42 Medication Orders clobetasol 0.05 % topical ointment 2022 023 [facility], [address] [facility], [place], [address], 3 13:04:19 clobetasol 0.05 % topical ointment 2021 022 [facility] [address], [address], [place], [address], 2 12:43:19 clobetasol 0.05 % topical ointment 2020 021 [facility] [address], [address] [facility], [place], [address], 1 11:42:31 clobetasol 0.05 % topical ointment 2020 021 [facility] [address], [address] [facility], [place], [address], 1 15:35:16 Patient TargetsNo targets recorded. Patient InstructionsNo instructions recorded. Reason for Referral None Reported. Results Created Date Observation Date Name Description Value Unit Range Abnormal Flag Note LastModifiedBy Organization Detail LastModifiedTime 05/20/20 21 05/20/2021 SURGI SWAPNA PATHO LOGY surgical pathology SEE RESULT S BELOW CASE REPOR T: Surgi swapna Patho logy Repor t Case: [id number] Autho mirella davila Provi jimbo: Marisol Fischer MD Colle cted: 05/20 1552 Order ing Locat ion: [place] [facility] Recei vargas: 05/21 0053 Patho logis t: Magaly West MD Speci men: Vulva , vulva r bx FINAL DIAGN OSIS: Vulva , biops y: -Lich en scler osus et atrop hicus . Elect benjamin yun by Magaly West MD on 021 at 12:47 PM ----- ----- ----- ----- ----- ----- ----- ----- ----- ----- ----- ----- ----- ----- ----- ----- ----- ---- CLINI SWAPNA INFOR MATIO N: not provi ded MICRO SCOPI C DESCR IPTIO N: A micro scopi c exami natio n was perfo rmed. GROSS DESCR IPTIO N: A. Vulva . The speci men is label ed with the patie nt's name, demog raphi cs and vulv ar biops y . Recei vargas in forma jeramy is a 0.4 cm piece of white -vincent tissu e. The entir e speci men is submi tted in one casse tte. Gross ed by Ry hernandez Not Available [facility] (Lab) [address] [facility], [place], [address], 05/21/2021 13:50:04 05/26/20 21 05/26/2021 imagi ng/di agnos tic resul t No observ ation record ed. [address], [address], 05/26/2021 22:54:33 09/25/19 23 09/25/2022 DEXA No observ ation record ed. [address], [address], 10/12/2022 05:27:19 11/05/19 23 11/05/2022 MAMMO , nikolay gallagher, bilat eral No observ ation record ed. [address], [address], 11/20/2022 05:23:49 Result Notes None recorded. Problems Name Problem SNOMED Code Status Onset Date Resolution Date Notes Provider Name and Address Organization Details Recorded Time SNOMED CT Concept Completed 201705/02/2021 Encntr for pulling unit floorhand exam (general ) (routine ) w/o abn findings ;Recorde d Elsewher e: No [facility]: EHR Treatment Manager derek: N Karlie ce ID: 0001 Ricardo lable Time: 10:30:00 AM Marisol Burgess MD [address], [place], [address], [facility] 15:22:25 Screenin g for malignan t neoplasm of rectum Completed 201705/02/2021 Screenin g for malignan t neoplasm s of the rectum;R ecorded Elsewher e: No [facility]at ion: [facility] S ource: EHR Treatment Manager derek: Nataly Ziegler ce ID: 0001 Ricardo lable Time: 10:30:00 AM Marisol Burgess MD [address], [place], [address], [facility] 15:22:20 Evaluati on finding Completed 201705/02/2021 Hematuri a, unspecif ied;Richard rded Elsewher e: No [facility] ource: EHR Treatment Manager derek: Nataly Ziegler ce ID: 0001 Ricardo lable Time: 10:30:[address] MD [address], [place], [address], [facility] 15:22:07 Microsco pic hematuri a [id number] Completed 201105/02/2021 MICROSCO PIC HEMATURI A;Record ed Elsewher e: No Locat ion: [facility] S ource: EHR Treatment Manager derek: N Karlie ce ID: 0001 Ricardo lable Time: 09:30:[address] AM MD [address], [place], [address], [facility] 1 15:22:11 Speciali zejama medical examinat ion Completed 201105/02/2021 Gynecolo gical Examinat ion;Richard rded Elsewher e: No Locat ion: [facility] S ource: EHR Treatment Manager derek: N Karlie ce ID: 0001 Ricardo lable Time: 09:30:00 AM Marisol Burgess MD [address], [place], [address], [facility] 1 15:22:26 Screenin g for malignan t neoplasm of cervix Completed 201105/02/2021 Screenin g for malignan t neoplasm s of the cervix;R ecorded Elsewher e: No Locat ion: [facility] S ource: EHR Treatment Manager derek: N Karlie ce ID: 0001 Ricardo lable Time: 09:30:00 AM Marisol Burgess MD [address], [place], [address], [facility] 1 15:22:16 Benign essentia l microsco pic hematuri a [id number] 33500 Completed 201605/02/2021 Benign essentia l microsco pic hematuri a;Record ed Elsewher e: No Locat ion: [facility] S ource: EHR Treatment Manager derek: Nataly Ziegler ce ID: 0001 Ricardo lable Time: 01:00:[address] MD [address], [place], [address], [facility] [address] 15:19:[address] Concept Completed 201605/02/2021 Encntr for general adult medical exam w/o abnormal findings ;Recorde d Elsewher e: No Locat ion: [facility] S ource: EHR Treatment Manager derek: N Karlie ce ID: 0001 Ricardo lable Time: 01:00:00 PM Marisol Burgess MD [address], [place], [address], [facility] 1 15:22:22 Acute vulvitis 75931273 Completed 201605/02/2021 Vulvitis ;Recorde d Elsewher e: No Locat ion: [facility] S ource: EHR Treatment Manager derek: N Practi ce ID: 0001 Ricardo lable Time: 03:15:00 PM Marisol Burgess MD [address], [place], [address], [facility] 1 15:19:18 Benign neoplasm of vulva 62149215 Completed 201105/02/2021 Benign neoplasm of vulva;Re corded Elsewher e: No Locat ion: [facility] S ource: EHR Treatment Manager derek: N Neerajti ce ID: 0001 Ricardo lable Time: 04:30:00 PM Marisol Burgess MD [address], [place], [address], [facility] 1 15:19:31 Insomnia 257425886 Completed 201305/02/2021 Insomnia ;Recorde d Elsewher e: No Locat ion: [facility] S ource: EHR Treatment Manager derek: N Neerajti ce ID: 0001 Ricardo lable Time: 02:00:00 PM Marisol Burgess MD [address], [place], [address], [facility] 1 15:22:09 Adult health examinat ion Completed 201305/02/2021 ROUTINE MEDICAL EXAM;Rec orded Elsewher e: No Locat ion: [facility] S ource: EHR Treatment Manager derek: N Neerajti ce ID: 0001 Ricardo lable Time: 02:00:[address] MD [address], [place], [address], [facility] 1 15:19:20 Body mass index 25-29 - overweig 204169641 Completed 201605/02/2021 Body mass index (BMI) 26.0-26. 9, adult;Re corded Elsewher e: No Locat ion: [facility] S ource: EHR Treatment Manager derek: N Neerajti ce ID: 0001 Ricardo lable Time: 01:00:00 PM Marisol Burgess MD [address], [place], [address], [facility] 15:19:37 Vaginola bial hernia Completed 201605/02/2021 Other specifie d noninfla mmatory disorder s of vagina;R ecorded Elsewher e: No Locat ion: [facility] S ource: EHR Treatment Manager derek: N Karlie ce ID: 0001 Ricardo lable Time: 09:30:00 AM Marisol Burgess MD [address], [place], [address], [facility] 15:22:31 Cervical , vaginal and vulval inflamma tory diseases 656038846 Completed 201105/02/2021 INFLM CERV,VAG ,VULVA NEC;Richard rded Elsewher e: No Locat ion: [facility] S ource: EHR Treatment Manager derek: Y Karlie ce ID: 0001 Ricardo lable Time: 11:00:00 AM Marisol Burgess MD [address], [place], [address], [facility] 1 15:22:04 Atrophic vaginiti s 63752533 Completed 201705/02/2021 Senile atrophic vaginiti s;Record ed Elsewher e: No Locat ion: [facility] S ource: EHR Treatment Manager derek: N Karlie ce ID: 0001 Ricardo lable Time: 10:30:[address] AM MD [address], [place], [address], [facility] 1 15:19:25 Blood in urine [id number] Completed 201305/02/2021 HEMATURI A NOS;Richard rded Elsewher e: No Locat ion: [facility] S ource: EHR Treatment Manager derek: N Neerajti ce ID: 0001 Ricardo lable Time: 02:00:00 PM Marisol Burgess MD [address], [place], [address], [facility] 1 15:19:35 Asymptom [facility] pic hematuri a [id number] Completed 201705/02/2021 [facility];Record ed Elsewher e: No Locat ion: [facility] S ource: EHR Treatment Manager derek: N Neerajti ce ID: 0001 Ricardo lable Time: 10:30:00 AM Marisol Burgess MD [address], [place], [address], [facility] 1 15:19:23 Urinary tract infectio us disease 57294548 Completed 201305/02/2021 UTI;Richard rded Elsewher e: No Locat ion: [facility] S ource: EHR Treatment Manager derek: N Neerajti ce ID: 0001 Ricardo lable Time: 02:00:00 PM Marisol Burgess MD [address], [place], [address], [facility] 1 15:22:29 Screenin g for malignan t neoplasm of colon Completed 201005/02/2021 Special screenin g for malignan t neoplasm s, colon;Pr actice ID: 0001 Marisol Burgess MD [address], [place], [address], [facility] 15:22:[address] Concept Completed 201605/02/2021 Encounte r for general adult medical exam w abnormal findings ;Practic e ID: 0001 Marisol Burgess MD [address], [place], [address], [facility] 15:22:13 Genital lichen sclerosu s 264569713 Active 2020 Marisol Burgess MD [address], [place], [address], [facility] 14:50:55 History of abdomina l hysterec kathryn 087271766 Active 2021 MORIS/BSO Marisol Burgess MD [address], [place], [address], [facility] 2 13:28:02 Problem Notes None recorded. Procedures Surgical History Date Name Laterality Status Provider Name and Address Organization Details Recorded Time 11/05/19 23 Most Recent Bone Density completed Ina Barrett [facility] 06/25/2023 12:54:14 11/05/19 23 Date of Last Mammogram completed Ina Barrett [facility] 06/25/2023 12:53:47 05/20/20 21 Vulvar Biopsy completed Marisol Burgess MD [address], [place], [address], [facility] 05/20/2021 15:22:53 09/13/19 06 colonoscopy completed Cheryl Callahan [facility] 05/02/2021 09:50:34 09/13/18 85 total hysterectomy with removal of both tubes and ovaries completed Cheryl Callahan [facility] 05/02/2021 09:50:18 09/13/18 [address] [facility] 05/02/2021 09:50:45 Imaging Results Imaging Date Name Status LastModified by Organiz ation Details LastModified Time 05/26/2021 imaging/diagno stic result completed [address], [place], [address], 05/26/2021 22:54:33 09/25/2022 DEXA active [facility] [address] [facility] [address], [place], [address], 10/12/2022 05:27:19 11/05/2022 MAMMO, screening, bilateral active [address], [place], [address], 11/20/2022 05:23:49 Procedure Notes None recorded. Medical Equipment None Reported. Allergies No known drug allergies Medications Name Sig Start Date Stop Date Status Note LastModified by Organization Details LastModified Time metformin 500 mg tablet TAKE 1 TABLET BY MOUTH ONCE DAILY WITH BREAKFAS T AND 2 WITH SUPPER active Not Available Not Available No t Available atorvasta tin 10 mg tablet TAKE 1 TABLET BY MOUTH ONCE DAILY active Not Available Not Available No t Available benzonata te 200 mg capsule TAKE 1 CAPSULE BY MOUTH THREE TIMES DAILY 05/26 completed Not Available Not Available Not Available clobetaso l 0.05 % topical cream apply by topical route every day a thin layer to the affected area(s) 05/02 completed Prescrib ed Elsewher e: No Locat ion: [facility] odify By: justine hudsonuntzaira DateTime : 11/02/19 17 01:00:00 PM Not Available Not Available Not Available amitripty line 10 mg tablet take 1 tablet by oral route every day 08/13 completed Prescrib ed Elsewher e: No Locat ion: [facility] odify By: eloisehappel silvano Encoun ter DateTime : 12/26/19 15 04:30:11 PM Not Available Not Available Not Available lisinopri l 10 mg tablet TAKE 1 TABLET BY MOUTH ONCE DAILY active Not Available Not Available No t Available Vivelle-D ot 0.05 mg/24 hr transderm al patch apply 1 patch by transder mal route 2 times every week 08/08 completed Prescrib ed Elsewher e: No Locat ion: [facility] odify By: holden giles DateTime : 03/22/20 12 09:30:00 AM Not Available Not Available Not Available omeprazol e 20 mg capsule,d elayed release Take 1 capsule every day by oral route. active Not Available Not Available No t Available clobetaso l 0.05 % topical ointment APPLY A THIN LAYER TO THE AFFECTED AREA(S) TWICE WEEKLY. active Not Available Not Available No t Available Vitamin D2 1,250 mcg (50,000 unit) capsule take 1 capsule by oral route every week 03/22 completed Prescrib ed Elsewher e: Yes Loca tion: [facility] odify By: holden giles DateTime : 03/21/20 12 04:26:19 PM Not Available Not Available Not Available Bactrim DS 800 mg-160 mg tablet take 1 tablet by oral route every 12 hours 08/13 completed Prescrib ed Elsewher e: No Locat ion: [facility] odify By: erwin giles DateTime : 08/08/20 14 02:00:00 PM Not Available Not Available Not Available Vivelle-D ot 0.025 mg/24 hr transderm al patch apply 1 patch by transder mal route 2 times every week cyclical ly, 3 weeks on and 1 week off 03/22 completed Prescrib ed Elsewher e: Yes Loca tion: [facility] odify By: franci Artis nter DateTime : 03/21/20 12 04:26:19 PM Not Available Not Available Not Available Riomet 500 mg/5 mL oral solution take 10 millilit er by oral route 2 times every day with meals 05/02 completed Prescrib ed Elsewher e: Yes Loca tion: [facility] odify By: franci Artis nter DateTime : 03/21/20 12 04:26:19 PM Not Available Not Available Not Available Calcio Hao 500 mg tablet 03/22 completed Prescrib ed Elsewher e: Yes Loca tion: [facility] odify By: holden giles DateTime : 03/21/20 12 04:26:19 PM Not Available Not Available Not Available Vitals Date Recorded Body height Body mass index (BMI) Body weight Systolic blood pressure Diastolic blood pressure Systolic blood pressure Diastolic blood pressure Provider Name and Address Organization Details Last Updated DateTime 1 162.56 cm 26.6 kg/m2 76403.8 2 g 154 mm[Hg] 84 mm[Hg] 142 mm[Hg] 78 mm[Hg] [facility] 1 15:16:58 Date Recorded Body height Body mass index (BMI) Body weight Systolic blood pressure Diastolic blood pressure Systolic blood pressure Diastolic blood pressure Provider Name and Address Organization Details Last Updated DateTime 1 162.56 cm 26.9 kg/m2 91720 g 152 mm[Hg] 81 mm[Hg] 150 mm[Hg] 78 mm[Hg] [facility] 1 15:06:19 Date Recorded Body height Body mass index (BMI) Body weight Systolic blood pressure Diastolic blood pressure Provider Name and Address Organization Details Last Updated DateTime 06/13/2021 162.56 cm 26.6 kg/m2 88722.82 g 140 mm[Hg] 83 mm[Hg] [facility] 1 11:31:13 Date Recorded Body height Body mass index (BMI) Body weight Systolic blood pressure Diastolic blood pressure Systolic blood pressure Diastolic blood pressure Provider Name and Address Organization Details Last Updated DateTime 2 162.56 cm 26.8 kg/m2 64666.4 1 g 144 mm[Hg] 78 mm[Hg] 132 mm[Hg] 80 mm[Hg] [facility] 2 12:26:46 Date Recorded Body height Body mass index (BMI) Body weight Systolic blood pressure Diastolic blood pressure Provider Name and Address Organization Details Last Updated DateTime 06/25/2023 162.56 cm 26.8 kg/m2 21640.41 g 164 mm[Hg] 80 mm[Hg] Ina Barrett [facility] 3 12:51:57 Date Recorded Systolic blood pressure Diastolic blood pressure Provider Name and Address Organization Details Last Updated DateTime 06/25/2023 132 mm[Hg] 80 mm[Hg] Mónica Rothman, [facility]- [address], [place], [address], [facility] 06/25/2023 13:07:28 Social History Question Answer Notes LastModified by Organizat ion Details LastModified Time Tobacco Smoking Status Never Smoker Cheryl Maryellenaugustina wilson, [facility] 05/02/2021 09:51:04 What Is Your Level Of Alcohol Consumption? None Information not available 05/02/2021 In The 14 Days Before Symptom Onset, Have You Had Close Contact With A Laboratory-confirm ed COVID-19 While That Case Was Ill? No Information n ot available 06/25/2023 In The 14 Days Before Symptom Onset, Have You Had Close Contact With A Person Who Is Under Investigation For COVID-19 While That Person Was Ill? No Information not available 06/25/2023 Have You Been To An Area Known To Be High Risk For COVID-19? No Information not available 06/25/2023 Do You Use Any Illicit Or Recreational Drugs? No Information not available 05/02/2021 Has Tobacco Cessation Counseling Been Provided? No Information not available 05/02/2021 Do You Or Have You Ever Used Any Other Forms Of Tobacco Or Nicotine? No Information not available 05/02/2021 Sex: Unknown Functional Status None recorded. Mental Status None recorded. Family History Relationship Description Onset Age of this Age Resolved Age Notes LastModified by Organization Details LastModified Time Father Hypercholest erolemia [email or web address] Not available 2020 15:04:42 Father Hypertensive disorder smcaley Not available 2020 15:05:13 Father Mental disorder [email or web address] Not available 2020 15:05:36 Brother Hypercholest erolemia smcaley Not available 2020 15:04:42 Sister Hypertensive disorder smcaley Not available 2020 15:05:13 Mother Hypertensive disorder [email or web address] Not available 2020 15:05:13 Notes:Brother: Coronary nicky ry disease, Hypertension Father: Congestive heart failure, Coronary artery disease Maternal grandfather: Cancer, colon, cancer, gastric Maternal grandmother: Diabetes mellitus Mother: Prolapsed uterus, spine ca Paternal aunt: Cancer, breast Sister: Asthma Medical History Condition Response Allergies (Food, seasonal, environmental ) N Other N Breast Cancer N Drug/Latex Allergies/Reactions N Blood Transfusion N Dermatologic Disorders N Lung Disease N Defects or Inherited Disease N Breast Problem N Gestational Diabetes N Hematologic disorders N Anesthesia Complications N History of STI N Deep Vein Thrombosis N Polycystic ovary syndrome N Anxiety Disorder N Autoimmune disease N Arthritis N Infertility N Polyps N Acid Reflux (GERD) N History of abnormal pap N Cancer N Stroke N Varicosities N Neurologic/Epilepsy N Endometriosis N High Cholesterol Y Headaches N Fibromyalgia N Kidney Disease N Heart Problems N Kidney or Bladder Problems N Thyroid Problems N GI Problems N Eating Disorder N Anemia N Art (IVF or FET) N Psychiatric Illness N Ovarian Cancer N Diabetes Y Pulmonary (TB, Asthma) N Hepatitis/Liver Disease N No Past Medical History N Eczema N Urinary Tract Infection N Abuse/Domestic Violence N Asthma N Trauma/Violence N Depression/ depression N Heart Disease N Pre-Eclampsia N Hypertension Y Osteoporosis N Thrombophilias N Gynecological History Statement/Question Response Date of Last Colonoscopy Date of Last Mammogram 11/05/2022 Most Recent Bone Density 11/05/2022 Sexually Active? N STIs/STDs N HPV Vaccine N Sexual Problems? N Current Control Method Hysterectom y Obstetrics History GPAL:G 3 P 3 0 0 3 Type Value Full Term 3 Living 3 Total 3 Past Encounters Encounter ID Performer Location Encounter Start Date Encounter Closed Date Diagnosis/Indication Diagnosis SNOMED-CT Code Diagnosis ICD10 Code Diagnosis Note [id number] MD Abril [place] [address] [address] 05/02/2021 14:42:59 05/02/2021 16:29:03 Lichen sclerosus of female genitalia 434298217 N90.4 Pruritus of vulva 307177 00 L29.2 [id number] MD Angy Schneider [address] [address] 05/20/2021 14:48:08 05/20/2021 15:33:25 Pruritus of vulva 66745442 L29.2 [id number] Marisol Burgess MD [place] [address] [address] 06/13/2021 11:25:12 06/13/2021 11:51:30 Genital lichen sclerosus 198730150 L90.0 [id number] Marisol Burgess MD [place] [address] [address] 05/26/2022 12:09:17 05/26/2022 13:46:25 Genital lichen sclerosus 823449103 L90.0 Gynecologi c examination 91141240 Z01.419 History of abdominal hysterectomy 188192083 Z90.711 [id number] Mónica Rothman [facility] [address] [address] 06/25/2023 12:40:29 06/25/2023 13:12:41 Gynecologic examination 04077605 Z01.419 Take Calcium with Vitamin D 12-1500mg daily. Do monthly self breast exams. It is advised to get annual flu shot in the fall and she could obtain at [facility] or [facility] clinic. If you haven't received the Tdap vaccine in the last 10 years you should obtain one as well. Have mammogram yearly, bone density every 2-3 years and colonoscop y every 5-10 years depending on findings and history. Engage in daily exercise of low impact aerobic exercise 45-60 minutes 4-5 times weekly. Avoid tobacco and illicit drugs as well as using moderation with alcohol intake less than 1-2 8 oz beverages daily. This lifestyle behavior pattern will lead to less health conditions and longer life span. If BMI greater than 25 weight watchers or dietary consult advised. Questions have been answered. Patient appears to understand instructio ns, but if you have any further questions call or respond to this email Pap/hpv USPSTF recommends against screening for cervical cancer in women older than 65yo, those who've had a hysterecto my for non-cancer indication s, & who have had adequate prior screening & are not otherwise at high risk for cervical cancer. STD Screen declinedGe netic Screen discussedC olon Screen UTD PCPDexa Screen UTD 2022Routin e Labs UTD PCP Screening mammography 24 [id number] Z12.31 Due 10/2023 Genital li riojas sclerosus [id number] L90.0 Health Concerns Section Related Observation LastModified by Organization Detai ls LastModified Time None Recorded Concern Status LastModified by Organization Details LastModified Time None Recorded Advance Directives Directive None Recorded Payers Encounter Date Sequence Insurance Name Policy Number Policy [place] Covered Member ID [place] Member ID Guarantor Name 05/02/2021 1 [place] Mily Gracias [id number] Mily Perez 05/02/2021 1 [facility] (MEDICARE REPLACEMENT/AD VANTAGE - PPO) [id number] Mily Gracias [id number] Mily Gracias 05/20/2021 1 [place] Mily Perez [id number] Mily Perez 05/20/2021 1 [facility] (MEDICARE REPLACEMENT/AD VANTAGE - PPO) [id number] Mily Gracias [id number] Mily Gracias 06/13/2021 1 [facility] (MEDICARE REPLACEMENT/AD VANTAGE - PPO) [id number] Mily Gracias [id number] Mily Gracias 05/26/2022 1 [facility] (MEDICARE REPLACEMENT/AD VANTAGE - PPO) [id number] Mily Gracias [id number] Mily Gracias 06/25/2023 2 [place] Mily Perez [id number] Mily Perez 06/25/2023 1 [employer] (MEDICARE REPLACEMENT PPO) [id number] Mily Perez [id number] Mily Perez Notes Date Note Type Note Provider Name and Address Organization Details Recorded Time 05/02/2021 text/html Patient is a 70y o who presents for vulvar itching, worsening over last 6 mos. Has had MORIS/BSO and no pulling unit floorhand care for years. She is sexually active. Tried hydrocortisone and other moisturizers and creams, nothing really helps. Concerns: last WWE:many years Depression:denies Domestic violence:denies Marisol Burgess MD [address], [place], [address], [facility] 05/02/2021 16:19:16 05/20/2021 text/html here for vulvar bx for suspected LS. Started clobetasol 05/02 and is so grateful- it is 95% better. Marisol Burgess MD [address], [place], [address], [facility] 05/20/2021 15:23:55 06/13/2021 text/html Here for FU lich en sclerosus confirmed on biopsy 4 weeks ago. On clobetasol for 6 weeks now, sx completely gone! She is so thrilled. Marisol Burgess MD [address], [place], [address], [facility] 06/13/2021 11:45:43 05/26/2022 text/html Patient is a 71y o who presents for an annual exam. MORIS/BSO. Using clobetasol 2x per week for LS and is so grateful to feel normal again. last pap-hyst mammo-05/2021 colonoscopy-2016? 10 years dexa-several years menopause-y sexually active-y seatbelts-y exercise-y depression-denies domestic violence-denies tobacco-n concerns- Marisol Burgess MD [address], [place], [address], [facility] 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 Post-MenopausalRepor raegan bypatient.Menopausal Symptoms:no menopausal symptoms; normal vaginal lubrication Vaginal Bleeding:history of menopause having occurred; no history of post menopausal bleeding Urinary Symptoms:no hematuria; no incontinence; no nocturia; no urinary frequency Vulva:no genital lesion; no vulvar atrophy Vagina:normal vaginal discharge; no vaginal atrophy Breast:no breast lump; no nipple discharge; no breast pain Sexual Complaints:no sexual complaints Psychological Symptoms:no depression; no anxiety Preventive Measures:encourage regular mammograms starting age 40; encourage self breast examination; encourage regular exercise; encourage no tobacco use; needs to schedule mammogram; history of recent colonoscopy Mónica Rothman, [facility]- [address], [place], [address], [facility] 06/25/2023 13:08:48 OBGyn Episode Ob Episode Information Episode Created Date Number of Fetuses Patient Bloodtype Patient rh Status Prepregnancy Weight lbs Domestic Partner Domestic Partner Phone Father Name [employer] Manager Status 05/02/20 21 1 CLOSED Fetus Data First Name Last Name Admitted to NICU Weight (g) Sex Living Outcome Pediatric Complications Fetus ID Race Codes Race Delivery Type 3288.54 [phone] [id number] Jase Calculation Initial Jase Date Initial Exam Date Initial Exam Provider Initial Ultrasound Date Last Menstrual Period Date Ultra Sound Weeks Gestation 0 Eighteen To Twenty Week Jase Update Ultra Sound Date Fundal Height At Umbil Quickening Date Ultra Sound Latest Weeks Gestation Final Jase Confirmed By Final Jase Confirmed Date Final Jase Date Ultra Sound Latest Days Gestation 0 0 Menstrual History Last Menstrual Date Menses Monthly On Bcp Conception Prior Menses Frequency Hcg Plus Date Menarche Onset Age Delivery Information Delivery Date Delivery Type Labor Anesthesia Weeks Gestation Incision Type Labor Labor Length Hrs Delivered By Post Complications Tubal Sterilization Discharge Date Comments 7 37 Discharge Information Feeding Method Contraceptive Method Maternal HG B and HCT Levels Ob Episode Information Episode Created Date Number of Fetuses Patient Bloodtype Patient rh Status Prepregnancy Weight lbs Domestic Partner Domestic Partner Phone Father Name [employer] Manager Status 05/02/20 21 1 CLOSED Fetus Data First Name Last Name Admitted to NICU Weight (g) Sex Living Outcome Pediatric Complications Fetus ID Race Codes Race Delivery Type 3600.15 [id number] Vaginal Delivery Jase Calculation Initial Jase Date Initial Exam Date Initial Exam Provider Initial Ultrasound Date Last Menstrual Period Date Ultra Sound Weeks Gestation 0 Eighteen To Twenty Week Jase Update Ultra Sound Date Fundal Height At Umbil Quickening Date Ultra Sound Latest Weeks Gestation Final Jase Confirmed By Final Jase Confirmed Date Final Jase Date Ultra Sound Latest Days Gestation 0 0 Menstrual History Last Menstrual Date Menses Monthly On Bcp Conception Prior Menses Frequency Hcg Plus Date Menarche Onset Age Delivery Information Delivery Date Delivery Type Labor Anesthesia Weeks Gestation Incision Type Labor Labor Length Hrs Delivered By Post Complications Tubal Sterilization Discharge Date Comments 2 38 Discharge Information Feeding Method Contraceptive Method Maternal HG B and HCT Levels Ob Episode Information Episode Created Date Number of Fetuses Patient Bloodtype Patient rh Status Prepregnancy Weight lbs Domestic Partner Domestic Partner Phone Father Name [employer] Manager Status 05/02/20 21 1 CLOSED Fetus Data First Name Last Name Admitted to NICU Weight (g) Sex Living Outcome Pediatric Complications Fetus ID Race Codes Race Delivery Type [phone] [phone] [id number] Jase Calculation Initial Jase Date Initial Exam Date Initial Exam Provider Initial Ultrasound Date Last Menstrual Period Date Ultra Sound Weeks Gestation 0 Eighteen To Twenty Week Jase Update Ultra Sound Date Fundal Height At Umbil Quickening Date Ultra Sound Latest Weeks Gestation Final Jase Confirmed By Final Jase Confirmed Date Final Jase Date Ultra Sound Latest Days Gestation 0 0 Menstrual History Last Menstrual Date Menses Monthly On Bcp Conception Prior Menses Frequency Hcg Plus Date Menarche Onset Age Delivery Information Delivery Date Delivery Type Labor Anesthesia Weeks Gestation Incision Type Labor Labor Length Hrs Delivered By Post Complications Tubal Sterilization Discharge Date Comments 9 40 Discharge Information Feeding Method Contraceptive Method Maternal HG B and HCT Levels
--- OUTSIDE RECORDS SUMMARY | 2024-11-17 14:15 | XMS_ITS | Data Portability ---
Author Organization [facility] Stevens Address [address] [place] [address] Care Team Providers Care Medical Data Entry Clerk Name Role Phone LARY AMBROCIO Primary Care Provider Unavailab le Assessment Encounter Date Assessment Date Assessment LastModified by Organization Details LastModified Time 07/25/2024 07/25/2024 Mammogram at [facility] coming up due. colonoscopy 2017- and 10 years was given, dr. rios. eye exam: yearly, due in summer dental exam: next week; q 6months. dr sonu koch. [email or web address] Not available 07/25/2024 11:43:38 Plan of Treatment Reminders Order Date Submit Date Provider Last Modified By Organization Details Last Modified Time Details Appointments ANY 15 2024 10:30A M ROBYN Curry Not available Not available Not available Lab HbA1c (hemoglob in A1c), blood 2023 024 DON[facility], [address], [place], [address], 08/26/2024 09:07:52 CBC w/ auto diff 2023 024 DON[facility]E [facility], [address], [place], [address], 08/26/2024 09:07:53 hepatic function panel, serum 2023 024 DONTAE [facility], [address], [place], [address], 08/26/2024 09:07:50 BMP, serum or plasma 2023 [facility], [address], [place], [address], 08/26/2024 09:07:51 TSH + free T4, serum 2023 [facility], [address], [place], [address], 08/26/2024 09:07:48 lipid panel, serum 2023 [facility], [address], [place], [address], 08/26/2024 09:07:49 Referral None recorded. Procedures None recorded. Surgeries None recorded. Imaging None recorded. Medication Orders atorvasta tin 10 mg tablet 2023 024 [facility] [address] [place], [address], 07/25/2024 11:40:43 metformin 500 mg tablet 2023 024 [facility] [address] [place], [address], 07/25/2024 11:40:41 trazodone 50 mg tablet 2023 024 [facility] [address] [place], [address], 07/25/2024 11:40:42 Patient TargetsNo targets recorded. Patient InstructionsNo instructions recorded. Reason for Referral None Reported. Results Created Date Observation Date Name Description Value Unit Range Abnormal Flag Note LastModifiedBy Organization Detail LastModifiedTime 08/25/20 24 08/26/2024 TSH+F REE T4 TSH 2.020 uIU/m L 0.450- 4.500 Not Available [facility] ([facility]) [address], [place], [address], 08/26/2024 09:07:48 08/25/20 24 08/26/2024 TSH+F REE T4 T4,free(dire ct) 1.32 NG/dL 0.82-1 .77 Not Available [facility] ([facility]) [address] [place], [address], 08/26/2024 09:07:48 08/25/20 24 08/26/2024 LIPID PANEL cholesterol, total 150 mg/dL 100-19 9 Not Available [facility] ([facility]) [address] [place], [address], 08/26/2024 09:07:49 08/25/2008/26/2024 LIPID PANEL triglyceride s 106 mg/dL 0-149 Not Available [facility] ([facility]) [address] [place], [address], 08/26/2024 09:07:49 08/25/20 24 08/26/2024 LIPID PANEL HDL cholesterol 45 mg/dL >39 Not Available [facility] ([facility]) [address] [place], [address], 08/26/2024 09:07:49 08/25/20 24 08/26/2024 LIPID PANEL VLDL cholesterol swapna 19 mg/dL 5-40 Not Available [facility] ([facility]) [address] [place], [address], 08/26/2024 09:07:49 08/25/20 24 08/26/2024 LIPID PANEL LDL chol calc ([facility]) 86 mg/dL 0-99 Not Available [facility] ([facility]) [address] [place], [address], 08/26/2024 09:07:49 08/25/20 24 08/26/2024 HEPAT IC FUNCT ION PANEL (7) protein, total 6.6 g/dL 6.0-8. 5 Not Available [facility] ([facility]) [address] [place], [address], 08/26/2024 09:07:50 08/25/20 24 08/26/2024 HEPAT IC FUNCT ION PANEL (7) albumin 4.3 g/dL 3.8-4. 8 Not Available [facility] ([facility]) [address], [place], [address], 08/26/2024 09:07:50 08/25/20 24 08/26/2024 HEPAT IC FUNCT ION PANEL (7) bilirubin, total 0.4 mg/dL 0.0-1. 2 Not Available [facility] ([facility]) [address] [place], [address], 08/26/2024 09:07:50 08/25/20 24 08/26/2024 HEPAT IC FUNCT ION PANEL (7) bilirubin, direct 0.10 mg/dL 0.00-0 .40 Not Available [facility] ([facility]) [address], [place], [address], 08/26/2024 09:07:50 08/25/20 24 08/26/2024 HEPAT IC FUNCT ION PANEL (7) alkaline phosphatase 100 IU/L 44-121 Not Available [facility] ([facility]) [address] [place], [address], 08/26/2024 09:07:50 08/25/20 24 08/26/2024 HEPAT IC FUNCT ION PANEL (7) AST (SGOT) 19 IU/L 0-40 Not Available [facility] ([facility]) [address] [place], [address], 08/26/2024 09:07:50 08/25/20 24 08/26/2024 HEPAT IC FUNCT ION PANEL (7) ALT (SGPT) 14 IU/L 0-32 Not Available [facility] ([facility]) [address] [place], [address], 08/26/2024 09:07:50 08/25/20 24 08/26/2024 BMP7+ EGFR glucose 104 mg/dL 70-99 above high normal Not Available [facility] ([facility]) [address] [place], [address], 08/26/2024 09:07:51 08/25/20 24 08/26/2024 BMP7+ EGFR BUN 18 mg/dL 8-27 Not Available [facility] ([facility]) [address] [place], [address], 08/26/2024 09:07:51 08/25/20 24 08/26/2024 BMP7+ EGFR creatinine 0.90 mg/dL 0.57-1 .00 Not Available [facility] ([facility]) [address], [place], [address], 08/26/2024 09:07:51 08/25/20 24 08/26/2024 BMP7+ EGFR eGFR 68 mL/mi n/1.7 3 >59 Not Available [facility] ([facility]) [address] [place], [address], 08/26/2024 09:07:51 08/25/20 24 08/26/2024 BMP7+ EGFR sodium 140 mmol/ L 134-14 4 Not Available [facility] ([facility]) [address] [place], [address], 08/26/2024 09:07:51 08/25/20 24 08/26/2024 BMP7+ EGFR potassium 5.1 mmol/ L 3.5-5. 2 Not Available [facility] ([facility]) [address] [place], [address], 08/26/2024 09:07:51 08/25/20 24 08/26/2024 BMP7+ EGFR chloride 103 mmol/ L 96-106 Not Available [facility] ([facility]) [address] [place], [address], 08/26/2024 09:07:51 08/25/20 24 08/26/2024 BMP7+ EGFR carbon dioxide, total 23 mmol/ L 20-29 Not Available [facility] ([facility]) [address], [place], [address], 08/26/2024 09:07:51 08/25/20 24 08/26/2024 HEMOG LOBIN A1C hemoglobin A1C 6.1 % 4.8-5. 6 above high normal Predi abete s: 5.7 - 6.4 Diabe hardik: >6.4 Glyce herber contr ol for adult s with diabe hardik: <7.0 Not Available [facility] ([facility]) [address], [place], [address], 08/26/2024 09:07:52 08/25/20 24 08/26/2024 CBC WITH DIFFE RENTI AL/PL ATELE T WBC 5.2 x10e3 /uL 3.4-10 .8 Not Available [facility] ([facility]) [address], [place], [address], 08/26/2024 09:07:53 08/25/20 24 08/26/2024 CBC WITH DIFFE RENTI AL/PL ATELE T RBC 4.51 x10e6 /uL 3.77-5 .28 Not Available [facility] ([facility]) [address], [place], [address], 08/26/2024 09:07:53 08/25/20 24 08/26/2024 CBC WITH DIFFE RENTI AL/PL ATELE T hemoglobin 13.8 g/dL 11.1-1 5.9 Not Available [facility] ([facility]) [address] [place], [address], 08/26/2024 09:07:53 08/25/20 24 08/26/2024 CBC WITH DIFFE RENTI AL/PL ATELE T hematocrit 42.3 % 34.0-4 6.6 Not Available [facility] ([facility]) [address], [place], [address], 08/26/2024 09:07:53 08/25/20 24 08/26/2024 CBC WITH DIFFE RENTI AL/PL ATELE T MCV 94 fL 79-97 Not Available [facility] ([facility]) [address], [place], [address], 08/26/2024 09:07:53 08/25/20 24 08/26/2024 CBC WITH DIFFE RENTI AL/PL ATELE T MCH 30.6 pg 26.6-3 3.0 Not Available [facility] ([facility]) [address], [place], [address], 08/26/2024 09:07:53 08/25/20 24 08/26/2024 CBC WITH DIFFE RENTI AL/PL ATELE T MCHC 32.6 g/dL 31.5-3 5.7 Not Available [facility] ([facility]) [address], [place], [address], 08/26/2024 09:07:53 08/25/20 24 08/26/2024 CBC WITH DIFFE RENTI AL/PL ATELE T RDW 12.6 % 11.7-1 5.4 Not Available [facility] ([facility]) [address], [place], [address], 08/26/2024 09:07:53 08/25/20 24 08/26/2024 CBC WITH DIFFE RENTI AL/PL ATELE T platelets 257 x10e3 /uL 150-45 0 Not Available [facility] ([facility]) [address], [place], [address], 08/26/2024 09:07:53 08/25/20 24 08/26/2024 CBC WITH DIFFE RENTI AL/PL ATELE T neutrophils 47 % notest ab. Not Available [facility] ([facility]) [address] [place], [address], 08/26/2024 09:07:53 08/25/20 24 08/26/2024 CBC WITH DIFFE RENTI AL/PL ATELE T lymphs 39 % notest ab. Not Available [facility] ([facility]) [address], [place], [address], 08/26/2024 09:07:53 08/25/20 24 08/26/2024 CBC WITH DIFFE RENTI AL/PL ATELE T monocytes 10 % notest ab. Not Available [facility] ([facility]) [address], [place], [address], 08/26/2024 09:07:53 08/25/20 24 08/26/2024 CBC WITH DIFFE RENTI AL/PL ATELE T eos 2 % notest ab. Not Available [facility] ([facility]) [address], [place], [address], 08/26/2024 09:07:53 08/25/20 24 08/26/2024 CBC WITH DIFFE RENTI AL/PL ATELE T basos 1 % notest ab. Not Available [facility] ([facility]) [address], [place], [address], 08/26/2024 09:07:53 08/25/20 24 08/26/2024 CBC WITH DIFFE RENTI AL/PL ATELE T neutrophils (absolute) 2.5 x10e3 /uL 1.4-7. 0 Not Available [facility] ([facility]) [address], [place], [address], 08/26/2024 09:07:53 08/25/20 24 08/26/2024 CBC WITH DIFFE RENTI AL/PL ATELE T lymphs (absolute) 2.1 x10e3 /uL 0.7-3. 1 Not Available [facility] ([facility]) [address] [place], [address], 08/26/2024 09:07:53 08/25/20 24 08/26/2024 CBC WITH DIFFE RENTI AL/PL ATELE T monocytes(ab solute) 0.5 x10e3 /uL 0.1-0. 9 Not Available [facility] ([facility]) [address], [place], [address], 08/26/2024 09:07:53 08/25/20 24 08/26/2024 CBC WITH DIFFE RENTI AL/PL ATELE T eos (absolute) 0.1 x10e3 /uL 0.0-0. 4 Not Available [facility] ([facility]) [address], [place], [address], 08/26/2024 09:07:53 08/25/20 24 08/26/2024 CBC WITH DIFFE RENTI AL/PL ATELE T baso (absolute) 0.1 x10e3 /uL 0.0-0. 2 Not Available [facility] ([facility]) [address], [place], [address], 08/26/2024 09:07:53 08/25/20 24 08/26/2024 CBC WITH DIFFE RENTI AL/PL ATELE T immature granulocytes 1 % notest ab. Not Available [facility] ([facility]) [address] [place], [address], 08/26/2024 09:07:53 08/25/20 24 08/26/2024 CBC WITH DIFFE RENTI AL/PL ATELE T immature grans (abs) 0.0 x10e3 /uL 0.0-0. 1 Not Available [facility] ([facility]) [address] [place], [address], 08/26/2024 09:07:53 Result Notes None recorded. Problems Name Problem SNOMED Code Status Onset Date Resolution Date Notes Provider Name and Address Organization Details Recorded Time Body mass index 25-29 - overweight 405812987 Active 2023 Lulu Madrid [place] null, [place] - [facility] 4 11:19:49 Long-term drug therapy Active 2023 ROBYN Curry Attn: Accountin g,[address] [facility], [place], [address], [place] - [facility] 4 11:30:59 Gastroesophage al reflux disease without esophagitis 197607852 Active 2023 ROBYN Curry Attn: Accountin g,[address] [facility], [place], [address], [place] [facility] 4 11:31:02 Benign essential hypertension 9426509 Active 2023 ROBYN Curry Attn: Accountin g,[address] [facility], [place], [address], [place] [facility] 4 11:31:02 Hyperlipidemia 38782177 Active 2023 ROBYN Curry Attn: Accountin g,[address] [facility], [place], [address], [place] [facility] 4 11:31:04 Type 2 diabetes mellitus without complication 711983200 Active 2023 ROBYN Curry Attn: Accountin g,[address] [facility], [place], [address], [place] [facility] 4 11:31:05 Chronic insomnia 568630723 Active 2023 ROBYN Curry Attn: Juan Fin g,[address] [facility], [place], [address], [place] [facility] 4 14:10:28 Renewal of prescription Active 2023 ROBYN Curry Attn: Oneyda g,[address] [facility], [place], [address], [place] [facility] 4 14:10:30 Problem Notes None recorded. Procedures Surgical History Date Name Laterality Status Provider Name and Address Organization Details Recorded Time hysterectomy completed Lulu Madrid MA [facility] 07/25/2024 11:14:38 Imaging Results None recorded. Procedure Notes None recorded. Medical Equipment None Reported. Allergies No known drug allergies Medications Name Sig Start Date Stop Date Status Note LastModified by Organization Details LastModified Time metformin 500 mg tablet TAKE 2 TABLETS BY MOUTH ONCE DAILY WITH MEALS active Not Available Not Available No t Available trazodone 50 mg tablet TAKE 1 TO 2 TABLETS BY MOUTH ONCE DAILY AT BEDTIME FOR SLEEP active Not Available Not Available No t Available atorvastatin 10 mg tablet Take 1 tablet every day by oral route for 90 days. active Not Available Not Available No t Available lisinopril 10 mg tablet TAKE 1 TABLET BY MOUTH ONCE DAILY active Not Available Not Available No t Available amoxicillin 875 mg-potassium clavulanate 125 mg tablet Take 1 tablet every 12 hours by oral route. active Not Available Not Available No t Available omeprazole active otc Not Available Not Av ailable Not Available B12 active otc Not Available Not Availa ble Not Available Vitals Date Recorded Body weight Body mass index (BMI) Body height Respiratory rate Oxygen saturation Oxygen saturation in Arterial blood by Pulse oximetry Heart rate Systolic blood pressure Diastolic blood pressure Provider Name and Address Organization Details Last Updated DateTime 4 00568.2 2 g 26.4 kg/m2 162.56 cm 20 /min 97 % 97 % 70 /min 128 mm[Hg] 82 mm[Hg] Lulu Madrid MA [facility] 11:21:07 Date Recorded Systolic blood pressure Diastolic blood pressure Provider Name and Address Organization Details Last Updated DateTime 07/25/2024 120 mm[Hg] 80 mm[Hg] ROBYN Curry Attn: Accounting,[address] [place], [address], [facility] 07/25/2024 11:39:55 Social History Question Answer Notes LastModified by Organizat ion Details LastModified Time Tobacco Smoking Status Never Smoker Lulu Madrid MA null, [facility] 07/25/2024 11:16:41 Do You Have An Advance Directive? Yes Will Information not available 07/25/2024 What Is Your Level Of Alcohol Consumption? None Information not available 07/25/2024 Are You Blind Or Do You Have Difficulty Seeing? No Glasses Information not available 07/25/2024 What Is Your Level Of Caffeine Consumption? Occasional Information not available 07/25/2024 In The 14 Days Before Symptom Onset, Have You Had Close Contact With A Laboratory-confir med COVID-19 While That Case Was Ill? No Information not available 07/25/2024 In The 14 Days Before Symptom Onset, Have You Had Close Contact With A Person Who Is Under Investigation For COVID-19 While That Person Was Ill? No Information not available 07/25/2024 Have You Been To An Area Known To Be High Risk For COVID-19? No Information not available 07/25/2024 Are You Currently Employed? No Information not available 07/25/2024 Are You Deaf Or Do You Have Serious Difficulty Hearing? No Information not available 07/25/2024 What Type Of Diet Are You Following? REGULAR Information not available 07/25/2024 What Is The Highest Grade Or Level Of School You Have Completed Or The Highest Degree You Have Received? [id number] Information not available 07/25/2024 Are There Any Guns Present In Your Home? No Information not available 07/25/2024 What Was The Date Of Your Most Recent Tobacco Screening? 07/25/2024 Information not available 07/25/2024 Do You Use Your Seat Belt Or Car Seat Routinely? Yes Information not available 07/25/2024 Do You Have Smoke And Carbon Monoxide Detectors In Your Home? Yes Information not available 07/25/2024 Do You Feel Stressed (tense, Restless, Nervous, Or Anxious, Or Unable To Sleep At Night)? [id number] Information not available 07/25/2024 Do You Use Any Illicit Or Recreational Drugs? No Information not available 07/25/2024 Do You Use Sunscreen Routinely? Yes Information not available 07/25/2024 Has Tobacco Cessation Counseling Been Provided? No Information not available 07/25/2024 Do You Or Have You Ever Used Any Other Forms Of Tobacco Or Nicotine? No Information not available 07/25/2024 Sex: Female Functional Status Question Answer Note LastModified by Organizat ion Details LastModified Time Are you able to care for yourself? Yes Information not available 07/25/2024 What is your exercise level? Occasional walk Information not available 07/25/2024 Mental Status None recorded. Family History Relationship Description Onset Age of this Age Resolved Age Notes LastModified by Organization Details LastModified Time Father Alcohol abuse [email or web address] Not available 2023 11:14:46 Father Coronary arterioscler osis [email or web address] Not available 2023 11:14:58 Father Heart disease [email or web address] Not available 2023 11:15:04 Brother Alcohol abuse [email or web address] Not available 2023 11:14:46 Brother Heart disease [email or web address] Not available 2023 11:15:04 Brother Hypertensive disorder [email or web address] Not available 2023 11:15:09 Sister Asthma tcarterma Not available 07/25/2024 11:14:52 Medical History Condition Response Coronary Artery Disease N Other N High Blood Pressure N Atrial Fibrillation N Kidney or Bladder Problems N Thyroid Problems N GI Problems N Depression N COPD N Blood Clots N Have you had a mammogram in the last yea r? N Skin Problems N Anemia N Heart Attack (ID) N Anxiety Disorder N Diabetes Y Muscle, Joint, or Bone Problems N Seizures/Epilepsy N Have you had a colonoscopy in the last 1 0 years? N Acid Reflux (GERD) Y Cancer N Stroke N Asthma N Allergies Y Have you had a PSA blood test in the las t year? N High Cholesterol N Hepatitis N Liver Disease N Headaches N Osteoporosis N Heart Failure N Gynecological History Statement/Question Response Menses Monthly N Current Control Method Menopause Obstetrics History GPAL:G 0 P 0 0 0 0 Immunizations Vaccine Type Date Status Note Provider Nam e and Address Organization Details Recorded Time zoster recombinant 9 completed Lulu [place] [facility] 07/25/2024 11:18:00 zoster recombinant 9 completed Lulu [place] [facility] 07/25/2024 11:18:00 Influenza, high-dose, quadrivalent, PF 0 completed Lulu [place] [facility] 07/25/2024 11:18:00 Influenza, high-dose, quadrivalent, PF 1 completed Lulu [place] [facility] 07/25/2024 11:18:00 Influenza, high-dose, quadrivalent, PF 2 completed Lulu [place] [facility] 07/25/2024 11:18:00 Influenza, high-dose, quadrivalent, PF 3 completed Lulu [place] [facility] 07/25/2024 11:18:00 COVID-19, mRNA, LNP-S, PF, 30 mcg/0.3 mL dose 1 completed Lulu [place] [facility] 07/25/2024 11:18:00 COVID-19, mRNA, LNP-S, PF, 30 mcg/0.3 mL dose 1 completed Lulu [place] [facility] 07/25/2024 11:18:00 COVID-19, mRNA, LNP-S, PF, 30 mcg/0.3 mL dose 1 completed Lulu [place] [facility] 07/25/2024 11:18:00 COVID-19, mRNA, LNP-S, bivalent, PF, 30 mcg/0.3 mL dose 2 completed L[place] [facility] 07/25/2024 11:18:00 RSV, recombinant, protein subunit RSVpreF, adjuvant reconstituted, 0.5 mL, PF 3 completed Lulu [place] [facility] 07/25/2024 11:18:00 COVID-19, mRNA, LNP-S, PF, halie-sucrose, 30 mcg/0.3 mL 4 completed [place] [facility] 07/25/2024 11:18:00 COVID-19, mRNA, LNP-S, PF, 50 mcg/0.5 mL 3 completed [place] [facility] 07/25/2024 11:18:00 pneumococcal polysaccharide PPV23 9 [place] [facility] 07/25/2024 11:18:00 Tdap 8 [place] [facility] 07/25/2024 11:18:00 Pneumococcal conjugate PCV 13 8 [place] [facility] 07/25/2024 11:18:00 zoster live 5 [place] [facility] 07/25/2024 11:18:00 Influenza, high-dose, trivalent, PF 8 [place] [facility] 07/25/2024 11:18:00 Influenza, high-dose, trivalent, PF 9 [place] [facility] 07/25/2024 11:18:00 Influenza, high-dose, trivalent, PF 4 [place] [facility] 07/25/2024 11:18:00 Influenza, split virus, trivalent, preservative 4 [place] [facility] 07/25/2024 11:18:00 Influenza, split virus, trivalent, preservative 7 [place] [facility] 07/25/2024 11:18:00 Influenza, split virus, trivalent, preservative 6 [place] [facility] 07/25/2024 11:18:00 Influenza, split virus, trivalent, PF 6 [place] [facility] 07/25/2024 11:18:00 Past Encounters Encounter ID Performer Location Encounter Start Date Encounter Closed Date Diagnosis/Indication Diagnosis SNOMED-CT Code Diagnosis ICD10 Code Diagnosis Note [id number] ROBYN Curry [facility] [place] [address] [place] [address] 07/25/2024 10:53:42 07/25/2024 12:55:08 Body mass index 25-29 - overweight 229080537 Z68.26 26.4 Renewal of prescription 139154805 Z76.0 Type 2 mitali betes mellitus without complication 270468702 E11.9 Continue metformin 500 mg 2 tablets daily and due for updated A1c lab Hyperlipidemia 85196418 E78.5 Continue atorvastat in 10 mg daily and check an update a fasting lipid panel Benign ess ential hypertension 3821789 I10 Blood pressure is well-contr olled on lisinopril 10 mg daily. Blood pressure today is 120/80 Gastroesop hageal reflux disease without esophagitis 554929025 K21.9 stable on OTC omeprazole qod. keeps her stable. Adult heal th examination 904215897 Z00.01 Annual PPO wellness exam completed Long-term drug therapy 064636049 Z79.891 All routine labs ordered Chronic insomnia 6982454 04 F51.04 Trial of trazodone 50-100 mg p.o. q.h.s. for insomnia Health Concerns Section Related Observation LastModified by Organization Detai ls LastModified Time None Recorded Concern Status LastModified by Organization Details LastModified Time None Recorded Advance Directives Directive Y: will Payers Encounter Date Sequence Insurance Name Policy Number Policy Tejada Covered Member ID Tejada Member ID Guarantor Name 07/25/2024 1 [employer] (MEDICARE REPLACEMENT PPO) [id number] 1 Mily Perez [id number] Mily Perez Notes Date Note Type Note Provider Name and Address Organization Details Recorded Time 07/25/20 24 text/htm l DiabetesReported bypatient.Notes:Patient is taking metformin 500 mg 2 tablets once dailyHyperlipidemiaReported bypatient.Notes:Patient is taking atorvastatin 10 mg daily and due for updated labsHypertensionReported bypatient.Notes:Patient is stable on lisinopril 10 mg daily for blood pressure managementInsomniaReported bypatient.Quality:symptoms worse in the evening Severity:worsening Duration:frequent Onset/Timing:gradual onset Context:takes minutes to fall asleep Associated Symptoms:no anxiety; no snoring; no depression; no known sleep apnea; no pain; no dyspnea; no urinary frequency; legs do not feel restlessReflux/GERDReported bypatient.Notes:Patient is taking omeprazole [id number] for acid reflux management with no complaints ROBYN Curry Attn: Accounting,[address] [place] [address], [phone], [facility] 08/11/2024 14:10:51 OBGyn Episode No OBEpisode recorded.
--- OUTSIDE RECORDS SUMMARY | 2024-11-17 14:15 | XMS_ITS | Continuity of Care Document ---
Author Organization [facility] Address [address] [place] [address] Phone Care Team Providers Care Community Organization Director Name Role Phone Edgar Mcqueen Unavailable Unavailable Procedures Procedure Date Eye Exam Established Pt Ophthalmoscopy, Subsequent Office Consultation Ophthalmoscopy Office/outpatient Visit, New Advance Directives Directive Yes / No Effective Date File Name No Information Encounters Encounter Description Practice Location Reason(s) For Visit Diagnoses Date Provider Providers Copied on Encounter [facility], [address] [place] [address] [address], [place], [place], [id number], [place] tel:[phone] [facility] No Information 8 Charisse Hernández. [address], [place], [facility], . tel:[phone] Office Consultation [facility], [address], [place], [place], [id number], [place] tel:[phone] [facility] No Information 8 Charisse Hernández. [address] [place], [address], [place]. tel:[phone] Referring Provider: Angelo Pacheco, [address] [place], [place] [address], [place], [place], [facility]. tel:[phone] Office/outpati ent Visit, [facility], [address], [place], [place], [id number], [place] tel:[phone] [facility] No Information 8 Frederickbraxton Stephens. [address] , [address], [place], [address], [place]. tel:[phone] Family History Family Member Type Diagnosis Age At Onset No Information Payers Payer name Insurance type Covered democrat ID Authorsusan white(s) [facility] Commercial CI [id number] Social History Type Description Quantity Date Captured Comments Sex Female Smoking Status No Information Chief Complaint And Reason For Visit No Information Reason For Referral Reason For Referral No Information History Of Present Illness Encounter Date Complaint History Of Prese nt Illness No Information Functional Status Date Functional Assessmen t No Information Instructions Date Instruction Additional Infor mation No Information Assessments Type Assessment Date No Information Patient Care Teams Name Effective Dates (start - stop) Status Members No Information
== END 2024-11-17 13:59 | disposition home or self-care (01) ==
LOC: ANHIMG 14:00
PROVIDERS: PCP Physician Assistant; Visit Provider Physician Assistant
DX: Z12.31 Encounter for screening mammogram for malignant neoplasm of breast (principal)
CPT/HCPCS: 77063; 77067